=== PATIENT | female | born 1975 | race Caucasian/White ===

== ENCOUNTER → 2017-05-10 07:58 | Outpatient (CLI) | payer OTHER, SELFPAY ==
[2017-05-10 10:34] LABS: Free T3 2.7 pg/mL (2.18-3.98); T4 Free Direct 0.92 ng/dL (0.76-1.46); Thyroid Stim Hormone (TSH) 1.16 uIU/mL (0.358-3.74)
== END ==
PROVIDERS: Family Provider Family Medicine; PCP Family Medicine; Visit Provider Nurse Practitioner
DX: E07.9 Disorder of thyroid, unspecified (principal)
CPT/HCPCS: 36415; 84439; 84443; 84481

== ENCOUNTER 2017-11-06 12:58 | Emergency (ER) | payer OTHER, SELFPAY ==
[2017-11-06 12:59] VITALS: BP 128/78; PULSE 117; RESP 25; TEMP 36.8; O2SAT 99; BMI 23.8
[2017-11-06] MEDS: LORazepam 2 MG/ML Syringe 1 MG IM (14:06)
[2017-11-06 14:09] VITALS: PULSE 112; RESP 24
[2017-11-06] MEDS: Ipratropium/Albuterol Sulfate 3 ML AMPUL.NEB INHALATION (14:09)
--- NOTE | 2017-11-06 15:15 | ED.VISSUMM ---
- ER Visit Summary Date of Service: 11/06/17 Chief Complaint: [Shortness of breath and wheezing] History of Present Illness: The patient is a 41 F [presents the emergency department complaint of shortness of breath that started around 10:30 AM. Patient states that she began feeling very short of breath and lightheaded. Patient is using her inhaler not getting any relief so she comes in for evaluation. Patient states that she went to [place] to visit and came back at the end of September and since that time she has been having increased episodes of what she thinks is asthma. Patient has been formally seen and evaluated by pulmonology and diagnosed with asthma. Patient has an appointment with a new specialist next week. Patient does state that she began feeling very anxious when she was having a hard time breathing and she did develop some numbness and tingling in her hands and around her mouth. Patient denies recent illness.] Physical Examination: [HEENT-PERRLA, EOMI. Cranial nerves II through XII grossly intact. TMs clear. Mucous membranes moist. No adenopathy. Cardiovascular-regular rate and rhythm without murmur or ectopy Lungs-clear to auscultation, chest wall stable without crepitus or subcu emphysema Abdomen-normoactive bowel sounds, soft, nontender, no rebound or rigidity, no peritoneal signs. Extremities-intact ?4, normal range of motion, normal pulses, atraumatic Test results-chest x-ray obtained was normal.] Emergency Department Course and Treatment: [Patient was given a DuoNeb aerosol and 1 mg of Ativan. Patient did have significant symptomatic improvement.] Treatment Plan: [At this point I do not hear any wheezing on exam and my suspicion is that there is a large component of anxiety. Patient will be given prednisone for 5 days and will be given as needed Ativan. Patient advised to follow-up with primary care physician for possible long-term management of anxiety. Patient to keep her appointment with her asthma specialist.] Disposition: [Discharged home in stable condition] Impression: [Asthma exacerbation Anxiety reaction] This note was generated with [employer] dictation software. It may contain incorrect words, spelling, and punctuation that were not noted in review of the chart prior to signing ED Disposition - Plan for ED Patient: Chief Complaint: Asthma Referrals: Anushka Johns MD [Primary Care Provider] -
--- NOTE | 2017-11-06 15:20 | ED.DEP ---
ED Disposition - Plan for ED Patient: Chief Complaint: Asthma Instructions: ED Reactive Airway Disease, ED Stress React Prescriptions: Prednisone [Deltasone] 20 mg PO BID #10 tab Lorazepam [Ativan] 1 mg PO TID PRN #15 tab PRN Reason: Anxiety Referrals: Bassam Herron MD [STAFF PHYSICIAN] - 3-5 Days
[2017-11-06 15:37] VITALS: BP 103/78; PULSE 100; RESP 14; O2SAT 97
[2017-11-06] MEDS: predniSONE 20 MG Tablet 40 MG PO (15:38)
== END 2017-11-06 15:40 | disposition home or self-care (01) ==
PROVIDERS: Emergency Provider Emergency Medicine; Family Provider Family Medicine; PCP Family Medicine
DX: J45.901 Unspecified asthma with (acute) exacerbation (principal); F41.9 Anxiety disorder, unspecified
CPT/HCPCS: 71046; 94640; 96372; 99282

== ENCOUNTER 2017-11-09 10:25 | Emergency (ER) | payer OTHER, SELFPAY ==
[2017-11-09 10:25] VITALS: BP 136/89; PULSE 99; RESP 16; TEMP 36; O2SAT 98; BMI 23.8
--- NOTE | 2017-11-09 10:43 | ED.DCSUM_ITS ---
- ER Visit Summary Date of Service: 11/09/17 Chief Complaint: Shortness of breath History of Present Illness: The patient is a 41 F for intermittent shortness of breath for the past 2 months. She was seen in the ER on November 06 for asthma. She is currently on prednisone 40 mg a day and takes multiple inhalers. She denies improvement in her symptoms. She is scheduled to see a new head correction officer next week and call the office today. She was sent back to the ER for stronger medicine. Patient states that she was very anxious because her asthma attack was very severe a few days ago. She believes that the physician thought her symptoms were primarily secondary to anxiety. Physical Examination: Blood pressure is 136/89, temperature 96.8, heart rate 99 , respiratory rate 16, pulse ox 98% on room air. Patient sitting upright in bed no acute distress. She is speaking full sentences. Head neck examination is unremarkable. Heart is regular rate and rhythm. Lung sounds are clear with good air movement throughout. Abdomen is soft and nontender. Test Results: Chest x-ray from the is reviewed and normal. EKG is sinus 83 with no acute ischemia. CBC is normal. Chemistry studies significant for bicarb of 20. Troponin and d-dimer are both negative. Emergency Department Course and Treatment: Patient was given a DuoNeb treatment here along with 125 mg of IV Solu-Medrol. On repeat evaluation she is feeling improved. Sats and respiratory rate have remained normal throughout her ED stay. We will write her a prednisone taper which she will take in place of her last day or 2 of prednisone. She is to follow-up with her head correction officer next week as planned. Treatment Plan: [] Disposition: Discharge Impression: Dyspnea, improved This note was generated with [employer] dictation software. It may contain incorrect words, spelling, and punctuation that were not noted in review of the chart prior to signing ED Disposition - Plan for ED Patient: Chief Complaint: Shortness of Breath Referrals: Anushka Johns MD [Primary Care Provider] -
[2017-11-09 10:58] VITALS: PULSE 99; RESP 18
[2017-11-09] MEDS: Ipratropium/Albuterol Sulfate 3 ML AMPUL.NEB INHALATION (10:58)
[2017-11-09] MEDS: MethylPREDNISolone 125 MG/2 ML Vial IV (10:58)
[2017-11-09 11:06] VITALS: O2SAT 99
[2017-11-09 11:21] LABS: Absolute Lymphocyte Count 0.96 X10^3/ul (0.83-4.51); Absolute Neutrophil Count 7.6 X10^3/uL (2.0-7.7); Basophil# 0.01 X10^3/uL; Basophil% 0.1 % (0-1); Eosinophil# 0.01 X10^3/uL; Eosinophils% 0.1 % (0-5); Hematocrit 43.2 % (37-47); Hemoglobin 14.4 g/dl (12.0-15.0); Lymphocyte # 0.96 X10^3/ul (4.0); Lymphocyte % 10.9 % (19-41); Mean Corp Hgb Conc 33.3 g/gl (32-36); Monocyte# 0.16 X10^3/uL; Monocyte% 1.8 % (0-10); Neutrophil # 7.64 X10^3/uL (2.7-7.7); Neutrophil % 87.1 % (47-70); Platelet Count 286 K/mm3 (150-450); RBC Distribution Width CV 12.8 % (11.6-14.6); RBC Distribution Width SD 41.9 fl (35.1-43.9); White Blood Count 8.8 K/mm3 (4.4-11.0)
[2017-11-09 11:22] LABS: POSITIVE COUNT NO; POSITIVE DIFFERENTIAL NO; POSITIVE MORPHOLOGY NO
[2017-11-09 11:27] LABS: Anion Gap 15 (5-15); BUN 15 mg/dL (7-18); BUN/Creat Ratio 14.3 RATIO (10-20); Calcium,Total 10.3 mg/dL (8.5-10.1); Chloride 108 mmol/L (98-107); Creatinine, Serum 1.05 mg/dL (0.55-1.02); EST Glomerular Filtration Rate 61 mL/min (>60); Est Glom Filt Rate - Afr Amer 74 mL/min (>60); Estimated Creatinine Clearance 55.77 ml/min; Glucose 110 mg/dL (74-106); Potassium 3.5 mmol/L (3.5-5.1); Sodium Level 143 mmol/L (136-145)
[2017-11-09 11:34] LABS: D-Dimer Quantitative (DVT/PE) < 0.27 FEU/ug/m (0.27-0.49)
--- NOTE | 2017-11-09 12:58 | ED.DEP ---
ED Disposition - Plan for ED Patient: Disposition: Home or Assisted Living Chief Complaint: Shortness of Breath Instructions: ED Reactive Airway Disease Prescriptions: Prednisone 10 mg PO DAILY #63 tablet Referrals: Anushka Johns MD [Primary Care Provider] - Man Pereira MD [NON-STAFF] - Keep Ellie appointment
[2017-11-09 13:20] VITALS: BP 112/81; PULSE 86; RESP 15; O2SAT 97
== END 2017-11-09 13:21 | disposition home or self-care (01) ==
PROVIDERS: Emergency Provider Emergency Medicine; Family Provider Family Medicine; PCP Family Medicine
DX: R06.09 Other forms of dyspnea (principal); J45.909 Unspecified asthma, uncomplicated
CPT/HCPCS: 80048; 84484; 85025; 85379; 93005; 94640; 96374; 99283; A4216

== ENCOUNTER 2017-12-06 08:01 | Day surgery (SDC) | payer OTHER, SELFPAY ==
--- NOTE | 2017-12-05 18:30 | PCM.HP.BLA ---
History and Physical Date of Admission: 12/06/17 HISTORY OF PRESENT ILLNESS 42 year old woman presents for evaluation of a recurrent soft tissue mass left occipital scalp/posterior neck that was initially excised in 12/21. Pathology showed a reactive lymph node and no cancer was seen. She states it started to recur about a year ago with some discomfort. She does have a history of headaches. She states she has been to the ED for evaluation because of concern for infection. Since her surgery in 2011, she has been diagnosed with celiac's disease and has a decreased immune system. She presents today for further evaluation and treatment. Today she denies any fever. She denies any drainage. There is only some discomfort when it is bumped. She thinks the mass has gotten softer. PAST MEDICAL HISTORY Asthma Frequent headaches Gastrointestinal problem Osteopenia Seasonal allergies Status post normal childbirth Thyroid disease Vitamin deficiency PAST SURGICAL HISTORY Glomus tumor appendectomy nasal septoplasty Lipoma ALLERGIES None. MEDICATIONS None. FAMILY HISTORY Mother Breast cancer Father Prostate cancer Sister Melanoma Thyroid disorder SOCIAL HISTORY Smoking Status: Never smoker alcohol intake: current substance use type: does not use REVIEW OF SYSTEMS General - Denies fever, fatigue, and weight loss. Eyes - Denies cataracts and glaucoma. ENT - Denies nasal congestion and sore throat. Endocrine - Denies excessive thirst and urination. Has thyroid disease. Skin - Denies skin cancer. Has recurrent soft tissue mass left occipital scalp/posterior neck. Musculoskeletal - Denies joint pain, joint stiffness, weakness of muscles and joints, back pain, and arthritis. Neuro - Has headaches. Cardiovascular - Denies chest pain, fatigue, and shortness of breath with exertion. Psych - Denies anxiety and depression. Respiratory - Denies chronic cough. Has shortness of breath. Has asthma. Gastrointestinal - Denies nausea, vomiting, diarrhea, and constipation. Has celiac's disease. Hematologic - Denies abnormal bruising and bleeding. Genitourinary - Denies hematuria and urinary frequency. PHYSICAL EXAMINATION General - Alert and Oriented HEENT - PERRL. EOMI. Throat is clear. Neck - Supple and nontender. No cervical adenopathy. On the left occipital scalp/posterior neck is a soft tissue mass. It is mobile. It measures 2.2 cm in the area of scar from previous excision of a reactive lymph node in 2011. No evidence of infection. No ulceration. Some discomfort when palpated. It was more nodular in June. The scar is flatter and softer. Lungs - Clear to auscultation. Heart - Regular rate and rhythm. Abdomen - Soft and nondistended. Extremities - FROM. No axillary adenopathy. Radial pulses are palpable. Neuro - CN II-XII grossly intact. Psych - Normal mood and affect. ASSESSMENT 1. 2.2 cm recurrent soft tissue mass left occipital scalp/posterior neck. 2. Family history of melanoma. PLAN Patient has persistent discomfort and intermittent headaches. There may be scarring around an adjacent nerve leading to some discomfort. The mass has slightly increased since her last visit in June. Clinically does not look suspicious for carcinoma at this time. However with her painful symptomatology and increase in size, it is recommended to the patient to proceed with excision. With her history of celiac's disease which decreases the immune system, it would be prudent to excise this lesion at some point. The issue is that in order to minimize further recurrence, a little wider excision may be necessary especially the underlying scar tissue. Since the scar has become flatter and the mass is softer, I doubt will need a skin graft. Should be able to close the wound with a local transposition skin flap. When excised, the lesion will be sent to Pathology for analysis to rule out carcinoma. Also some tissue will be sent to Microbiology for culture. A positive culture would necessitate antibiotic therapy. Back in 2011, it was a reactive lymph node. Today it may be a cyst versus another lymph node. But with a decreased immune system, carcinoma cannot be ruled out. Patient feels better that a skin graft would be unlikely but understands the chance is not zero. Surgery would be on an outpatient basis under general anesthesia. Patient was informed of the risks and complications of the procedure including alternatives to surgery. These were discussed with the patient personally. Patient voices understanding and wishes to proceed. Some of the risks and complications were included in a form from the [employer] [employer]. She wants to wait until the Fall to have the surgery.
[2017-12-06 08:20] VITALS: BP 129/93; PULSE 89; RESP 16; TEMP 36.6; O2SAT 99; BMI 24.7
[2017-12-06 08:26] LABS: Internal QC Validated? YES +Cl - CLEAR BKGD; Pregnancy, Urine Negative Negative
--- NOTE | 2017-12-06 09:30 | SOF_PTH ---
PATIENT: JASPREET BLAND [place] [facility] [id number] AGE/SX: 42/F ROOM: RE12/06/[address]: Dr. Ismael Samson MD : 1975 BED: DIS: 12/06/2017 SPEC #: [id number] RECD: 12/06/17 14:50 STATUS: ROSANGELA TEX #: [id number] BENNY: 12/06/17 09:[address]: Ismael Samson DEPT: SURGICAL PATHOLOGY RECD BY: Kahlil Tapia ENTERED: 12/07/17 04:56 SP TYPE: SOFT TISS OTHR DR: Dr. Anushka Johns MD Tissues: Soft tissues, NOS Procedures: Surgery Specimen Level III HEADER OPERATION: Excision recurrent painful soft tissue mass occipital scalp PRE-OP DIAGNOSIS: 2.2 cm recurrent soft tissue mass left posterior neck TISSUE SUBMITTED: Soft tissue mass left posterior neck MICROSCOPIC DIAGNOSIS Soft tissue mass left posterior neck, biopsy: Mature adipose tissue, consistent with lipoma. A small lymph node tissue with reactive changes, favor benign. See comment. J LUIS:wes 12/07/17 COMMENT Skeletal muscle tissue is also noted in the submitted specimen. MICROSCOPIC DESCRIPTION Slides are reviewed. GROSS DESCRIPTION Received in fixative is one container labeled with the patient's name and designated soft tissue mass posterior neck. The specimen consists of a piece of skin with underlying adipose tissue measuring 2 x 0.5 cm and up to 2.5 cm in thickness. Also received is a piece of lindsey-white skin measuring 1 x 0.2 x 0.3 cm. Also present in the container is a piece of yellow adipose tissue measuring 3 x 2 x 0.5 cm. Skeletal muscle tissue is also noted at one edge of the specimen. Skin with underlying tissue also shows a suture which no orientation is given. The entire specimen is submitted in three cassettes. / J LUIS:wes 12/06/17 TC:1 CPT: 52698
[2017-12-06] MEDS: Mupirocin Ointment 22gm Tube 1 APPLIC (11:04)
--- NOTE | 2017-12-06 11:38 | PCM.IMDPSTOP ---
Immediate Post-Op Note Date of Procedure: 12/06/17 Primary Surgeon/Physician: Ismael Samson front office supervisor: None Pre-Operative Diagnosis: 1. 2.2 cm recurrent soft tissue mass left posterior neck. 2. Family history of melanoma. Post-Operative Diagnosis: Same. Surgery/Procedure Performed:: Excision 2.2 cm recurrent soft tissue mass left occipital scalp/posterior neck with rhomboid transposition skin flap reconstruction (4.5 cm2). Description of Surgical Findings:: 42 year old woman presents for evaluation of a recurrent soft tissue mass left posterior neck that was initially excised in 12/21. Pathology showed a reactive lymph node and no cancer was seen. She states it started to recur about a year ago with some discomfort. She does have a history of headaches. She states she has been to the ED for evaluation because of concern for infection. Since her surgery in 2011, she has been diagnosed with celiac's disease and has a decreased immune system. She presents today for further evaluation and treatment. Today she denies any fever. She denies any drainage. There is only some discomfort when it is bumped. She thinks the mass has gotten softer. Today the patient underwent excision 2.2 cm recurrent soft tissue mass left occipital scalp/posterior neck with rhomboid transposition skin flap reconstruction (4.5 cm2). I used April absorbable hemostat. Reference Number - [id number]. Lot Number - [id number]. Expiration - September 06, 2022. Estimated Blood Loss: 10 ml. Specimen's removed: Recurrent painful soft tissue mass left occipital scalp/posterior neck to Pathology and Microbiology. Drains: None. Type of Anesthesia:: General - Admit VTE Documentation VTE Present on Admission: No VTE Mechan Device Prophylaxis: SCD's VTE Pharm Prophylaxis ordered?: No
--- NOTE | 2017-12-06 11:51 | PCM.DC ---
You will use the following diet at home:: No restrictions Discharge Activity: May not drive while taking narcotic pain medications., May Shower - in 2 days., - - keep head elevated. no heavy lifting. May shower in (days): 2 May resume sexual activity in: No Restrictions Weight Bearing Status: Weight bearing as tolerated Lifting Restrictions: 20 lbs. Keep extremity elevated above heart level: - - elevate head. Call your doctor if your incision/area has: Continuous Slow Oozing, Sudden Increased Bleeding, Increased Pain/ Swelling, Increased Redness, Foul Smelling Discharge, Swelling at the incision site Call your doctor if you observe: Fever of 101 or Higher, Coldness, Increased Pain, Shortness of breath, Chest pain, Calf discomfort, Uncontrolled pain Suture Line Care: - - apply antibiotic ointment to suture line daily. Cleanse incision/area with: - - may get incision wet in the shower in two days. Allergies/Adverse Reactions: Allergies No Known Allergies Allergy (Verified 11/22/17 10:47) Medications to take at Discharge Albuterol IH (ProAir) [Proair Hfa] 2 puff INHALATION Q4H PRN PRN 11/22/17 Calcium Carbonate [Calcium] 600 mg PO DAILY 11/22/17 Cholecalciferol (Vitamin D3) [Vitamin D3] 1,000 unit PO DAILY 11/22/17 Ipratropium [Atrovent Inhaler] 1 puff INHALATION PRN PRN 11/22/17 Tramadol HCl/Acetaminophen [Ultracet Tablet] 1 tab PO Q4H PRN PRN 11/22/17 Clindamycin HCl [Cleocin] 300 mg PO TID #15 cap 12/06/17 Diazepam [Valium] 5 mg PO BID PRN PRN #10 tab 12/06/17 Oxycodone HCl/Acetaminophen [Percocet 5/325] 1 - 2 tab PO 4X/DAY PRN PRN 4 Days #30 tab 12/06/17 The following prescriptions were given: Diazepam [Valium] 5 mg PO BID PRN PRN #10 tab PRN Reason: Spasms Oxycodone HCl/Acetaminophen [Percocet 5/325] 1 - 2 tab PO 4X/DAY PRN PRN 4 Days #30 tab PRN Reason: Pain Clindamycin HCl [Cleocin] 300 mg PO TID #15 cap Primary Care Physician: Anushka Johns MD [Primary Care Provider] - Test Results: Test results from this visit will be discussed in further detail at your follow-up appointment, if applicable. Please Follow Up With: Ismael Samson MD When: one week. call [phone] for appt. Proposed Discharge Date: 12/06/17
[2017-12-06 11:52] VITALS: BP 116/73; BP 129/93; PULSE 99; RESP 16; TEMP 36.5; O2SAT 94
--- NOTE | 2017-12-06 11:54 | DCINST_ITS ---
You will use the following diet at home:: No restrictions Discharge Activity: May not drive while taking narcotic pain medications., May Shower - in 2 days., - - keep head elevated. no heavy lifting. May shower in (days): 2 May resume sexual activity in: No Restrictions Weight Bearing Status: Weight bearing as tolerated Lifting Restrictions: 20 lbs. Keep extremity elevated above heart level: - - elevate head. Call your doctor if your incision/area has: Continuous Slow Oozing, Sudden Increased Bleeding, Increased Pain/ Swelling, Increased Redness, Foul Smelling Discharge, Swelling at the incision site Call your doctor if you observe: Fever of 101 or Higher, Coldness, Increased Pain, Shortness of breath, Chest pain, Calf discomfort, Uncontrolled pain Suture Line Care: - - apply antibiotic ointment to suture line daily. Cleanse incision/area with: - - may get incision wet in the shower in two days. Allergies/Adverse Reactions: Allergies No Known Allergies Allergy (Verified 11/22/17 10:47) Medications to take at Discharge Albuterol IH (ProAir) [Proair Hfa] 2 puff INHALATION Q4H PRN PRN 11/22/17 Calcium Carbonate [Calcium] 600 mg PO DAILY 11/22/17 Cholecalciferol (Vitamin D3) [Vitamin D3] 1,000 unit PO DAILY 11/22/17 Ipratropium [Atrovent Inhaler] 1 puff INHALATION PRN PRN 11/22/17 Tramadol HCl/Acetaminophen [Ultracet Tablet] 1 tab PO Q4H PRN PRN 11/22/17 Clindamycin HCl [Cleocin] 300 mg PO TID #15 cap 12/06/17 Diazepam [Valium] 5 mg PO BID PRN PRN #10 tab 12/06/17 Oxycodone HCl/Acetaminophen [Percocet 5/325] 1 - 2 tab PO 4X/DAY PRN PRN 4 Days #30 tab 12/06/17 The following prescriptions were given: Diazepam [Valium] 5 mg PO BID PRN PRN #10 tab PRN Reason: Spasms Oxycodone HCl/Acetaminophen [Percocet 5/325] 1 - 2 tab PO 4X/DAY PRN PRN 4 Days #30 tab PRN Reason: Pain Clindamycin HCl [Cleocin] 300 mg PO TID #15 cap Primary Care Physician: Anushka Johns MD [Primary Care Provider] - Test Results: Test results from this visit will be discussed in further detail at your follow- up appointment, if applicable. Please Follow Up With: Ismael Samson MD When: one week. call [phone] for appt. Proposed Discharge Date: 12/06/17
[2017-12-06 12:03] VITALS: BP 112/69; BP 129/93; PULSE 94; RESP 12; O2SAT 99
[2017-12-06 12:15] VITALS: BP 124/83; BP 129/93; PULSE 96; RESP 12; O2SAT 99
[2017-12-06 12:28] VITALS: BP 112/76; BP 129/93; PULSE 101; RESP 14; TEMP 36.3; O2SAT 97
[2017-12-06 12:59] VITALS: BP 109/62; BP 129/93; PULSE 78; RESP 16; TEMP 36.3; O2SAT 98
--- NOTE | 2017-12-06 16:52 | PCM.OPRPT ---
Report of Operation Date of Procedure: 12/06/17 Pre-Operative Diagnosis: 1. 2.2 cm recurrent soft tissue mass left posterior neck. 2. Family history of melanoma. Post-Operative Diagnosis: Same. Surgery/Procedure Performed:: Excision 2.2 cm recurrent soft tissue mass left occipital scalp/posterior neck with rhomboid transposition skin flap reconstruction (4.5 cm2). Description of Surgical Findings:: 42 year old woman presents for evaluation of a recurrent soft tissue mass left posterior neck that was initially excised in 12/21. Pathology showed a reactive lymph node and no cancer was seen. She states it started to recur about a year ago with some discomfort. She does have a history of headaches. She states she has been to the ED for evaluation because of concern for infection. Since her surgery in 2011, she has been diagnosed with celiac's disease and has a decreased immune system. She presents today for further evaluation and treatment. Today she denies any fever. She denies any drainage. There is only some discomfort when it is bumped. She thinks the mass has gotten softer. Patient was informed of the risks and complications of the procedure including alternatives to surgery. These were discussed with the patient personally. Patient voices understanding and wishes to proceed. Some of the risks and complications were included in a form from the [employer] [employer]. I used April absorbable hemostat. Reference Number - [id number]. Lot Number - [id number]. Expiration - September 06, 2022. light oil operator: None Type of Anesthesia:: General Specimen's removed: Recurrent painful soft tissue mass left occipital scalp/posterior neck to Pathology and Microbiology. Drains: None. Estimated Blood Loss (mL): 10 ml. Description of Procedure: Patient was taken to OR in supine position and was placed under general anesthesia. She was placed in the prone position. The occipital scalp and left posterior neck area were prepped and draped in the usual fashion. SCD's were placed for DVT prophylaxis. Perioperative antibiotics were given intravenously. Using xylocaine with epinephrine, the area of the occipital scalp and left posterior neck was infiltrated. After waiting 5 minutes for the anesthetic to take effect, I excised the previous longitudinal scar down into the subcutaneous tissue. Extensive scar tissue was present which was excised and was adherent down to the underlying muscle. The soft tissue mass that was excised was clinically consistent with a lipoma. After excision, the mass and surrounding scar tissue was sent to Pathology for analysis to rule out carcinoma. Some of the tissue was also sent to Microbiology for culture. A positive culture will necessitate antibiotic therapy. Attempted closure of the wound was tight secondary to the amount of scar tissue that was excised. So it was decided to proceed with a local skin flap for closure to minimize tension of the incision. A rhomboid flap was designed adjacent to the wound. The markings were infiltrated with xylocaine with epinehrine. Incisions were made and the rhomboid flap was elevated on a subcutaneous pedicle down to the muscular fascia. The rhomboid flap was easily transposed into the defect with minimal tension and minimal distortion. Hemostasis was obtained with electrocautery. The wound was irrigated with saline. I sprayed the wound with April absorbable hemostat to minimize seroma formation. The size of the defect and the size of the flap needed to close the defect was 4.5 cm2. After transposing the flap into the defect, the wounds were closed in layered fashion with 5-0 Monocryl interrupted sutures for the deep dermis and subcutaneous tissue. The skin was approximated with 5-0 Monocryl simple interrupted sutures. Antibiotic ointment was applied to the suture line. Patient tolerated the procedure well and was sent to PACU in satisfactory condition. Patient will be sent home on antibiotics and pain medication and Valium for muscle spasm from irritation of the muscle during the dissection. Patient will keep her head elevated during the initial postop period. Patient will followup in a week for a wound check and for discussion of the pathology report and the microbiology culture report. A positive culture will necessitate antibiotic therapy. Grafts/Implants Used: None. - Complications None. - Admit VTE Documentation VTE Present on Admission: No VTE Mechan Device Prophylaxis: SCD's VTE Pharm Prophylaxis ordered?: No Code Visit Surgery Charges CPT - 59923 ICD-10 - R22.1, Z80.8
== END 2017-12-06 13:34 | disposition home or self-care (01) ==
LOC: SDC 08:02 → AC 08:03
PROVIDERS: Family Provider Family Medicine; PCP Family Medicine; Referring Provider Surgery; Visit Provider Surgery
PROC: (CPT 14040; principal; 2017-12-06 09:15)
DX: R22.1 Localized swelling, mass and lump, neck (principal); Z80.8 Family history of malignant neoplasm of other organs or systems; J45.909 Unspecified asthma, uncomplicated; M85.80 Other specified disorders of bone density and structure, unspecified site
CPT/HCPCS: 00300; 14040; 81025; 87070; 87075; 87102; 87205; 87206; 88304; J7120; J2405

== ENCOUNTER → 2018-04-11 09:51 | Outpatient (CLI) | payer OTHER, SELFPAY ==
[2018-04-02 08:16] VITALS: BMI 25.7
--- NOTE | 2018-04-11 14:02 | BRONCHALL ---
Bronchoprovocation Challenge - Bronchoprovocation Challenge Bronchoprovocation Challenge: INTRODUCTION: The patient is a 42-year-old female who presents for a methacholine challenge secondary to a diagnosis of shortness of breath. The respiratory therapist reported good patient effort and reproducible results. The patient did not have any contraindications to testing. INTERPRETATION: Initial spirometry did not show any large airways obstructive ventilatory defect. The patient was then given progressively increasing doses of methacholine in a standardized fashion. The patient showed no significant response in FEV1 throughout the test. IMPRESSION: Negative methacholine challenge.
== END ==
PROVIDERS: Family Provider Family Medicine; PCP Family Medicine; Referring Provider Internal Medicine Critical Care Medicine; Visit Provider Internal Medicine Critical Care Medicine
DX: R06.02 Shortness of breath (principal); J30.2 Other seasonal allergic rhinitis
CPT/HCPCS: 94070; 95070; J3490; J7674

== ENCOUNTER 2018-08-22 11:30 | Outpatient (RCR) | payer OTHER, SELFPAY ==
[2018-08-07 10:41] VITALS: BMI 24.5
--- NOTE | 2018-08-15 19:36 | SOAP_ITS ---
REASON FOR REFERRAL: The Patient is a 42 year old female referred for a clinical speech-language evaluation at [facility] on 08/15/2018 due to concerns for persistent shortness of breath possibly secondary to paradoxical vocal fold dysfunction following extensive workup by the Patients global director air and climate change (Dr. Angel), with planned upcoming workup via medart operator (Dr. Carlos). The Patient reports symptoms of acute shortness of breath unrelated to physical exertion stating she is incapable of drawing a full breath, reporting difficulties primarily with inhalation vs. exhalation. She denies the presence of stridor or any further alterations in her breathing pattern. She states this has been occurring over the past several years between the months of July to October, reporting that she does quite well outside of these specific months; she reports that July was a particularly bad this year. She reports that her symptoms tend to last days at a time vs. minutes / hours, with one instance lasting nearly 3 days (July 27 to July 30) following extensive yard work (mulch, brushing excessive pollen off of belongings). She tends to wake without symptoms, with her symptoms gradually building in regards to intensity over the first 1-2 hours. She reports occasional dizziness with symptomology. She reports persistent rhinorrhea without relief. She denies a presence of chest tightness, and denies associated coughing. She does report that tight clothing with at times make her symptoms worse. She did report an initial relief with inhaler use, though this was temporary. She does report a gradual increase in regards to anxiety, stating this is associated in part to the persistent issues she has experienced with celiac disease; she states that she is an ?over thinker?, she reports a possible panic attack last October (tough her symptoms were rather mild last year), though does not feel as though this has progressed in line with her breathing symptomology. Prior allergy workup suggested seasonal allergies, though she reports no further intervention was initiated MEDICAL HISTORY: Seasonal allergies, asthma, frequent headaches, thyroid disease, Irritable bowel syndrome, celiac disease, osteopenia, vitamin deficiency, status post appendectomy, status post glomus tumor, status post nasal septoplasty. ADDITIONAL OBJECTIVE ASSESSMENT RESULTS: 04/11/2018 bronchoprovocation challenge revealed negative methacholine challenge results. ORAL MOTOR / MODIFIED CRANIAL NERVE ASSESSMENT: CNV, VII, IX, X, and XII appears grossly intact. Natural upper / lower dentition in excellent repair. No xerostomia. No evidence of sialorrhea. No reported signs or symptoms of trismus. Appropriate vocal quality without apparent detrimental non-phonatory behaviors (claviclular breathing, stridor, chronic throat clearing / coughing). FUNCTIONAL STATUS ASSESSMENT RESULTS: Generalized Anxiety Disorder 7-item (REGINA-7) scale: 3 (no anxiety disorder) Patient Health Questionnaire (PHQ-9): 0 (minimal to no risk) Functional Ambulation Category (FAC): 5 (ambulator- independent) CLINICAL ASSESSMENT OF VOCAL CORD FUNCTIONING (QUANTITATIVE): Reflux Symptom Index (RSI): 8 (>13 may indicate significant reflux) Voice Handicap Index ? 10 (VHI-10): 2 (slight alteration) Vocal Cord Dysfunction Questionnaire (VCD-Q): 36 /60 S/Z Ratio: 1.19 (1.40 suggests vibratory dysfunction of the vocal folds) Maximum Phonation Time (MPT): 28.8 seconds CLINICAL ASSESSMENT OF VOCAL CORD FUNCTION (QUALITATIVE): Type of Stridor/Breathing Difficulty Inspiratory: yes Expiratory: no Biphasic (inspiratory & expiratory): no Pattern of Stridor/Breathing Difficulty Continuous (all of the time) day & night: no Continuous daytime only not at night: no Intermittent attacks lasting [id number]: no Intermittent attacks lasting [id number]: yes Intermittent attacks lasting several days: yes Triggers (Timing and/or Associated Activities) After meals (eating/drinking): no Awakens from sleep: no Associated with exercise: no Associated with stress: no Associated with certain odors: no Associated Symptoms Hoarseness: no Chest tightness: no Cough: no Dysphagia: no Globus sensation: no Heartburn: no Regurgitation: no Throat tightness: no Specific Relevant Past Medical History Allergies and/or asthma: yes Brain tumor: no Haldol or other phenothiazine: no Head injury: no Laryngeal or non-laryngeal dystonia: no LPR and/or GERD: no Psychiatric disorder: no Stroke: no Vocal fold paralysis: no General Examination / Observations Breathy and/or hoarse vocal quality: no Inspiratory/biphasic stridor during respiration/speech: no Reduced breath support or control: no Musculoskeletal tension of the head and neck: no Throat tightness/choking/breathing problem during Alternating / i / - sniff: no Rapid in-and-out breathing: no Cough/throat clear/chuckle, then deep breath: no Rapid and loud counting: no Smelling a strong perfume or chemical: no Running in place: no RESULTS OF THE EVALUATION: The Patient presents with clinical concerns for 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 RECOMMENDATIONS FOR INTERVENTION: Recommend continued skilled speech-language intervention 1x per week for upwards of 10 weeks with a licensed speech-language pathologist targeting training and implementation of recommended compensatory respiratory strategies and laryngeal control exercises to reduce / eliminate the effects of paradoxical vocal fold dysfunction. FUNCTIONAL OUTCOMES: OUTCOME 1: the Patient with independently demonstrate and utilize recommended compensatory breathing techniques during both structured therapeutic activities and during acute breathing episodes to facilitate improved airway functioning and decreased anxiety at the independent level, across 2 out of 3 sessions. OUTCOME 2: goal adjustment as needed Teofilo Dawson M.A., CCC-FLOOR WORKER WELL SERVICE, CBIS MBSImP Certified, LSVT Certified [facility] Speech-Language Pathology Department [email or web address]
--- NOTE | 2019-01-08 19:46 | HP.SP.DC ---
ST Discharge Summary - Discharged: Discharge: The Patient is a 42 year old female who attended 2 skilled speech-language intervention sessions spanning from 08/15/2018 to 08/22/2018 due to concerns for persistent shortness of breath possibly secondary to paradoxical vocal fold dysfunction following extensive workup by the Patients tea plantation worker (Dr. Angel), with planned upcoming workup via stranding machine operator helper (Dr. Carlos) at the time of assessment. Following initial sessions, the Patient reported preference to hold further intervention pending full workup via stranding machine operator helper, with plans to discharge following 8 weeks if no further sessions have been scheduled. We will discharge from the skilled speech-language pathology caseload at this time, as no further sessions have been scheduled, though would gladly re-initiate intervention as needed moving forward.
== END 2018-08-22 19:00 | disposition home or self-care (01) ==
LOC: SP 11:30
PROVIDERS: Family Provider Family Medicine; PCP Family Medicine; Referring Provider Internal Medicine Critical Care Medicine; Visit Provider Internal Medicine Critical Care Medicine
DX: J38.3 Other diseases of vocal cords (principal)
CPT/HCPCS: 92507; 92524

== ENCOUNTER → 2018-11-12 12:17 | Outpatient (CLI) | payer OTHER, SELFPAY ==
[2018-08-07 10:41] VITALS: BMI 24.5
[2018-11-12 14:10] LABS: Thyroid Stim Hormone (TSH) 1.23 uIU/mL (0.358-3.74)
== END ==
PROVIDERS: Family Provider Family Medicine; PCP Family Medicine; Referring Provider Family Medicine; Visit Provider Family Medicine
DX: E03.9 Hypothyroidism, unspecified (principal)
CPT/HCPCS: 36415; 84443

== ENCOUNTER → 2019-04-23 | Outpatient (CLI) | payer OTHER, SELFPAY ==
[2018-08-07 10:41] VITALS: BMI 24.5
== END | disposition home or self-care (01) ==
LOC: LABSPEC 14:11
PROVIDERS: PCP Family Medicine; Referring Provider Family Medicine; Visit Provider Family Medicine
DX: J02.9 Acute pharyngitis, unspecified (principal)
CPT/HCPCS: 87070

== ENCOUNTER → 2020-03-23 15:02 | Outpatient (CLI) | payer OTHER, SELFPAY ==
[2018-08-07 10:41] VITALS: BMI 24.5
[2020-03-23 18:40] LABS: AST(SGOT) 27 U/L (15-37); Alanine Aminotransfer ALT/SGPT 77 U/L (13-56); Cholesterol 127 mg/dL (200); High Density Lipoprotein 49 mg/dL; Triglycerides 197 mg/dL; Very Low Density Lipoprotein 39 mg/dL (5-40)
== END ==
PROVIDERS: PCP Family Medicine; Referring Provider Family Medicine; Visit Provider Family Medicine
DX: E78.5 Hyperlipidemia, unspecified (principal)
CPT/HCPCS: 36415; 80061; 84450; 84460

== ENCOUNTER 2021-03-14 08:03 | Outpatient (CLI) | payer OTHER, SELFPAY ==
[2021-03-14 11:13] LABS: AST(SGOT) 21 U/L (15-37); Alanine Aminotransfer ALT/SGPT 28 U/L (13-56); Cholesterol 171 mg/dL (200); High Density Lipoprotein 47 mg/dL; T4 Total, Thyroxin 10.1 ug/dL (4.8-13.9); Thyroid Stim Hormone (TSH) 1.88 uIU/mL (0.358-3.74); Triglycerides 263 mg/dL; Very Low Density Lipoprotein 53 mg/dL (5-40)
== END 2021-03-14 23:59 | disposition home or self-care (01) ==
LOC: MTLAB 08:05
PROVIDERS: PCP Family Medicine; Referring Provider Family Medicine; Visit Provider Family Medicine
DX: E78.5 Hyperlipidemia, unspecified (principal); E03.9 Hypothyroidism, unspecified
CPT/HCPCS: 36415; 80061; 84436; 84443; 84450; 84460

== ENCOUNTER → 2021-12-14 | Outpatient (CLI) | payer OTHER, SELFPAY ==
[2021-12-14 16:56] LABS: AST(SGOT) 18 U/L (15-37); Alanine Aminotransfer ALT/SGPT 21 U/L (13-56); Cholesterol 171 mg/dL (200); High Density Lipoprotein 43 mg/dL; Triglycerides 406 mg/dL
== END | disposition home or self-care (01) ==
LOC: MFPLAB 13:58
PROVIDERS: PCP Family Medicine; Referring Provider Family Medicine; Visit Provider Family Medicine
DX: E78.5 Hyperlipidemia, unspecified (principal)
CPT/HCPCS: 36415; 80061; 84450; 84460

== ENCOUNTER → 2023-01-05 | Outpatient (CLI) | payer OTHER, SELFPAY ==
--- NOTE | 2023-01-05 16:00 | RAD_ITS ---
EXAM: XR CERVICAL SPINE, 4 OR 5 VIEWS CLINICAL INDICATION: neck and arm pain TECHNIQUE: Frontal, lateral and bilateral oblique views of the cervical spine. COMPARISON: No relevant prior studies available. FINDINGS: VERTEBRAE: Unremarkable. Preserved vertebral body height. No acute fracture. No spondylolisthesis. Preservation of the normal cervical lordosis. No significant facet arthropathy. DISC SPACES: Unremarkable. Disc spaces are maintained. SOFT TISSUES: Unremarkable. No prevertebral soft tissue widening. LUNG APICES: Clear. RAD/Cerv Spine 4 or 5 Views IMPRESSION: No evidence of acute fracture or spondylolisthesis. Electronically Signed: Ever Tilley MD at 23:52 EDT ,
== END | disposition home or self-care (01) ==
LOC: MTRAD 16:00
PROVIDERS: PCP Family Medicine; Referring Provider Family Medicine; Visit Provider Family Medicine
DX: S46.819A Strain of other muscles, fascia and tendons at shoulder and upper arm level, unspecified arm, initial encounter (principal)
CPT/HCPCS: 72050

== ENCOUNTER 2023-02-21 08:00 | Outpatient (RCR) | payer OTHER, SELFPAY ==
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
--- NOTE | 2023-02-21 10:53 | HP.PTREVAL_ITS ---
Re-Evaluation Intro: Dr. Anushka Johns MD, It has been my pleasure to treat JESUSITA BLAND over the last 18 visits for TRAPEZIUS STRAIN. Please see the progress note below for an update on the physical therapy plan of care! Subjective Subjective: PATIENT REPORTS SHE IS DOING A LOT BETTER OVER-ALL. SHE REPORTS HER HEADACHES WERE DAILY BEFORE SHE STARTED AND HER NECK PAIN WAS INTENSE. SHE STATES SHE REALLY APPRECIATES ALL THE TIPS FOR HOME AND THE EX'S. Objective Objective/Function: PATIENT WAS SEEN TODAY FOR RE-ASSESSMENT OF PROGRESS TOWARD THE SET PT GOALS AND THE NEED FOR FURTHER PHYSICAL THERAPY VS READINESS FOR DISCHARGE. PATIENT HAS MADE GOOD PROGRESS WITH PT BUT WOULD BENEFIT FROM PT IN THE FUTURE FOR FURTHER POSTURE CORRECTION AND STRENGTHENING. SHE IS REPORTING LESS PAIN AND DEMO'S SOME IMPROVED ROM ALONG WITH NOW HAVING A HOME EX PROGRAM. UPON EXAM TODAY: Motor deficit: B SHLD 4/5, ELBOWS 5/5. R LIGHTING ENGINEER 61 LBS, L LIGHTING ENGINEER 50 LBS (PATIENT IS R HAND DOMINANT). Dural Signs: NEGATIVE CARRILLO UE'S. Cervical Mvmt Loss: Flex: NIL Pro: NIL Ext: MOD Ret: MOD RSB: MOD LSB: MOD R Rot: MIN L Rot: MIN PATIENT DENIES INCREASED NECK PAIN DURING AND AFTER ROM TESTING TODAY. Postural strength: FAIR Palpation: NO ACUTE CERVICAL, OCCIPUT, OR UPPER THORACIC TENDERNESS BUT INCREASED MUSCLE TONE THROUGHOUT. Plan Plan Plan: D/C DUE TO HAVING FOOT SURGERY TOMORROW. Balance/Gait/Functional tests Balance/Special Test Scores Oswestry Neck Score: 9 Goals Goals Goal 1:: PATIENT WILL REPORT DECREASED HEAD AND NECK PAIN BY 25% TO EASE ADL'S Goal Time Frame: 4-6 Weeks Goal Progress: Goal Met Goal 2:: IMPROVE PERSONAL CARE, SLEEP, WORK, DRIVING AND RECREATIONAL FUNCTION SHOWN BY 5 POINT INCREASE ON NECK OSESTRY Goal Time Frame: 4-6 Weeks Goal Progress: Goal Met Goal 3:: INSTRUCT IN PROPHYLAXIS Goal Time Frame: 4-6 Weeks Goal Progress: Goal Met Anticipated Interventions Anticipated Interventions Patient/Client Instruction: Educate patient on: Condition, Plan of Care and Risk Factors For the Purpose of:: To improve self management Therapeutic Exercise to Include: Strength training, Body mechanics, Postural training, Flexibilty training, Neuromotor development and Scapular Strength/Stabilization Manual Therapy Techniques to Include: Mobilization and Soft tissue mobilization For the Purpose of:: To decrease pain and To improve nutrient delivery to tissue Intermittent cervical traction: Yes For the Purpose of:: To decrease pain Re-Evaluation Ending Re-evaluation ending: Please do not hesitate to contact me at [phone] by phone or if you have questions or concerns regarding this new plan of care! Sincerely, Jesusita Pineda, PT, Cert MDT
--- NOTE | 2023-06-18 19:16 | HP.PTDCSUM_ITS ---
Discharge Summary D/C summary: It has been my pleasure to treat JESUSITA BLAND referred by Dr. Anushka Johns MD, with the diagnosis of TRAPEZIUS STRAIN for a total of 18 visit(s). Discharge Date: 02/21/23 Please see the following information for a summary of their discharge status. Subjective Subjective: PATIENT REPORTS SHE IS DOING A LOT BETTER OVER-ALL. SHE REPORTS HER HEADACHES WERE DAILY BEFORE SHE STARTED AND HER NECK PAIN WAS INTENSE. SHE STATES SHE REALLY APPRECIATES ALL THE TIPS FOR HOME AND THE EX'S. Pain NECK: Pain Intensity (Out of 10): 0 UPPER BACK: Pain Intensity (Out of 10): 0 HEADACHE: Pain Intensity (Out of 10): 0 LEFT SHOULDER: Pain Intensity (Out of 10): 1 Overall Improvement % Improvement: 85 Objective Objective/Function: PATIENT WAS SEEN TODAY FOR RE-ASSESSMENT OF PROGRESS TOWARD THE SET PT GOALS AND THE NEED FOR FURTHER PHYSICAL THERAPY VS READINESS FOR DISCHARGE. PATIENT HAS MADE GOOD PROGRESS WITH PT BUT WOULD BENEFIT FROM PT IN THE FUTURE FOR FURTHER POSTURE CORRECTION AND STRENGTHENING. SHE IS REPORTING LESS PAIN AND DEMO'S SOME IMPROVED ROM ALONG WITH NOW HAVING A HOME EX PROGRAM. UPON EXAM TODAY: Motor deficit: B SHLD 4/5, ELBOWS 5/5. 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 Dural Signs: NEGATIVE CARRILLO UE'S. Cervical Mvmt Loss: Flex: NIL Pro: NIL Ext: MOD Ret: MOD RSB: MOD LSB: MOD R Rot: MIN L Rot: MIN PATIENT DENIES INCREASED NECK PAIN DURING AND AFTER ROM TESTING TODAY. Postural strength: FAIR Palpation: NO ACUTE CERVICAL, OCCIPUT, OR UPPER THORACIC TENDERNESS BUT INCREASED MUSCLE TONE THROUGHOUT. Goals Goal 1:: PATIENT WILL REPORT DECREASED HEAD AND NECK PAIN BY 25% TO EASE ADL'S Goal Progress: Goal Met Goal 2:: IMPROVE PERSONAL CARE, SLEEP, WORK, DRIVING AND RECREATIONAL FUNCTION SHOWN BY 5 POINT INCREASE ON NECK OSESTRY Goal Progress: Goal Met Goal 3:: INSTRUCT IN PROPHYLAXIS Goal Progress: Goal Met Plan Plan: D/C DUE TO HAVING FOOT SURGERY TOMORROW. D/C Information d/c sentence: If there are questions or concerns regarding this patient's physical therapy, please feel free to call me at [phone]. Thank you for the referral of this patient. Sincerely, Jesusita Pineda, PT, Cert MDT Balance/Gait/Functional tests Balance/Special Test Scores Oswestry Neck Score: 9 Improvement % Improvement: 85
== END 2023-02-21 19:00 | disposition home or self-care (01) ==
LOC: PT 08:00
PROVIDERS: PCP Family Medicine; Referring Provider Family Medicine; Visit Provider Family Medicine
DX: S46.819D Strain of other muscles, fascia and tendons at shoulder and upper arm level, unspecified arm, subsequent encounter (principal)
CPT/HCPCS: 97112; 97140; 97162; 97164; 97530

== ENCOUNTER → 2023-03-13 | Outpatient (CLI) | payer OTHER, SELFPAY ==
[2023-03-13 12:43] LABS: AST(SGOT) 51 U/L (15-37); Alanine Aminotransfer ALT/SGPT 117 U/L (13-56); Cholesterol 201 mg/dL (200); High Density Lipoprotein 54 mg/dL; Thyroid Stim Hormone (TSH) 1.59 uIU/mL (0.358-3.74); Triglycerides 306 mg/dL; Very Low Density Lipoprotein 61 mg/dL (5-40)
== END | disposition home or self-care (01) ==
LOC: MTLAB 09:52
PROVIDERS: PCP Family Medicine; Referring Provider Family Medicine; Visit Provider Family Medicine
DX: E78.5 Hyperlipidemia, unspecified (principal); F41.9 Anxiety disorder, unspecified
CPT/HCPCS: 36415; 80061; 84443; 84450; 84460

== ENCOUNTER → 2023-03-16 | Outpatient (CLI) | payer OTHER, SELFPAY ==
[2023-03-16 15:22] LABS: Absolute Lymphocyte Count 1.19 X10^3/uL (0.83-4.51); Absolute Neutrophil Count 3.9 X10^3/uL (2.0-7.7); Basophil# 0.03 X10^3/uL; Basophil% 0.5 % (0-1); Eosinophil# 0.17 X10^3/uL; Hematocrit 39.5 % (37-47); Hemoglobin 12.6 g/dL (12.0-15.0); Lymphocyte # 1.19 X10^3/ul (0.83-4.51); Mean Corp Hgb Conc 31.9 g/dL (32-36); Mean Corpuscular Hgb 29.7 pg (27.0-32.0); Mean Corpuscular Volume 93.2 fL (81-99); Mean Platelet Vol. 10.5 fl (6.2-12.0); Monocyte# 0.36 X10^3/uL; Monocyte% 6.3 % (0-10); NRBC Flagged by Analyzer 0 % (0-5); Neutrophil # 3.91 X10^3/uL (2.7-7.7); Neutrophil % 68.8 % (47-70); Platelet Count 314 K/mm3 (150-450); RBC Distribution Width CV 12.7 % (11.6-14.6); RBC Distribution Width SD 43.5 fl (35.1-43.9); Red Blood Count 4.24 M/mm3 (4.2-5.4); White Blood Count 5.7 K/mm3 (4.4-11.0)
[2023-03-16 15:46] LABS: Erythrocyte Sedimentation Rate 8 mm/hr (0-30)
[2023-03-19 15:08] LABS: EBV Acute VCA IgM < 36.0 U/mL (0.0-35.9); EBV Nuclear Antigen IgG < 18.0 U/mL (0.0-17.9)
== END | disposition home or self-care (01) ==
LOC: MFPLAB 11:57
PROVIDERS: PCP Family Medicine; Visit Provider Family Medicine
DX: R79.89 Other specified abnormal findings of blood chemistry (principal)
CPT/HCPCS: 36415; 85025; 85652; 86664; 86665

== ENCOUNTER → 2023-03-29 | Outpatient (CLI) | payer OTHER, SELFPAY ==
--- OUTSIDE RECORDS SUMMARY | 2023-03-29 15:52 | XMS RPT_ITS | CCD ---
Author Name Unknown Address [address] [facility] [address] [place] [address] Organization [facility] Care Team Providers Care Turbine Operator Name Role Phone FRANCO BARKER Unavailable Unavailable Anushka Johns Primary Care Provider Anushka Johns Primary Care Provider Anushka Johns Mela Primary Care Provider [phone] Anushka Johns Primary Care Provider NATAN BRUNNER Attending Unavailable ANUSHKA JOHNS MELA Primary Care Unavailable ONDINA ZABALA Attending Unavailable ANUSHKA JOHNS MELA Primary Care Unavailable ONDINA ZABALA Referring Unavailable ANUSHKA JOHNS MELA Primary Care Unavailable Allergies Allergy Classification Reported Allergen(s) Allergy Type Date of Onset Reaction(s) Facility (2 sources) OTHER; Translations: [OTHER] Propensity to adverse reactions (disorder) 6 [facility] Other [facility] (7 sources) enviromental [Other] Propensity to adverse reactions 6 [facility] Medications Current Medications Medication Drug Class(es) Dates Sig (Normalized) Sig (Original) amoxicillin 875 mg / clavulanate 125 mg oral tablet (1 source) Penicillin-class Antibacterial Start: 09-19-2021 End: 09-26-2021 take 1 tablet by mouth twice daily amoxicillin-clav ulanic acid (AUGMENTIN) 875-125 mg per tablet Indications: Acute otitis media, right Take 1 tablet by mouth twice daily for 7 days. 14 tablet 0 09/19/2021 09/26/2021 Active Completed/Discontinued Medications Medication Drug Class(es) Dates Sig (Normalized) Sig (Original) acetaminophen 325 mg / traMADol hydrochloride 37.5 mg oral tablet (7 sources) Opioid Agonist Start: 05-22-2011 take 1 tablet by mouth once as needed TRAMADOL-ACETAMIN OPHEN 37.5-325 mg per tablet Take 1 tablet by mouth as needed. 0 05/22/2011 Active Problems Active Problems Problem Classification Problem Date Documented Da te Episodic/Chronic Malaise and fatigue (7 sources) Fatigue; Translations: [Chronic fatigue, unspecified] Onset: 06-25-2014 06-25-2014 Chronic Nutritional deficiencies (7 sources) Vitamin D deficiency; Translations: [Vitamin D deficiency, unspecified] Onset: 06-25-2014 06-25-2014 Chronic Other gastrointestinal disorders (7 sources) Celiac disease; Translations: [Celiac disease] Onset: 03-12-2008 11-15-2017 Chronic Other lower respiratory disease (1 source) Shortness of breath; Translations: [Shortness of breath] Onset: 12-03-2017 Episodic Other lower respiratory disease (1 source) Cough; Translations: [Cough] Onset: 12-03-2017 Episodic Other screening for suspected conditions (not mental disorders or infectious disease) (4 sources) Patient encounter status; Translations: [Encounter for screening mammogram for malignant neoplasm of breast] Onset: 11-24-2022 Episodic Other upper respiratory disease (7 sources) Allergic rhinitis due to pollen; Translations: [Allergic rhinitis due to pollen] Onset: 02-06-2018 02-06-2018 Chronic Other upper respiratory disease (7 sources) Seasonal allergic rhinitis; Translations: [Other allergic rhinitis] Onset: 02-06-2018 02-06-2018 Chronic Other upper respiratory disease (1 source) Chronic rhinitis; Translations: [Chronic rhinitis] Chronic Past or Other Problems Problem Classification Problem Date Documented Da te Episodic/Chronic Other bone disease and musculoskeletal deformities (7 sources) Osteopenia; Translations: [Other specified disorders of bone density and structure, unspecified site] Onset: 06-25-2014 06-25-2014 Episodic Other lower respiratory disease (7 sources) Chronic cough; Translations: [Chronic cough] Onset: 11-15-2017 11-15-2017 Episodic Other lower respiratory disease (7 sources) Dyspnea; Translations: [Shortness of breath] Onset: 11-15-2017 11-15-2017 Episodic Other nutritional; endocrine; and metabolic disorders (7 sources) History of Graves' disease; Translations: [Personal history of other endocrine, nutritional and metabolic disease] Onset: 04-08-2008 06-25-2014 Episodic Results Test Name Value Interpretation Reference Range Facil ity Vital Signs Date Time Vital Sign Value Performing Clinician Marcelino rodriguez 05-15-2022 08:40-0500 Body height 157.5 cm Ondina Zabala MD Work Phone: [facility] 05-15-2022 08:40-0500 Body weight 64.41 kg Ondina Zabala MD Work Phone: [facility] 05-15-2022 08:40-0500 Diastolic blood pressure 64 mm[Hg] Ondina Zabala MD Work Phone: [facility] 05-15-2022 08:40-0500 Systolic blood pressure 110 mm[Hg] Ondina Zabala MD Work Phone: [facility] Encounters Encounter Date Encounter Type Care Provider Facility Start: 11-27-2022 Documentation procedure Mammog liu Coordinator [facility] Start: 11-27-2022 Letter encounter Mammography Coordinator [facility] Department Start: 11-24-2022 End: 11-24-2022 ambulatory ONDINA ZABALA Facility:[facility] Start: 11-24-2022 Encounter for gynecological examination (general) (routine) without abnormal findings NATAN BRUNNER [facility] Start: 11-24-2022 End: 11-24-2022 Patient encounter status Screen [facility] Start: 11-24-2022 End: 11-24-2022 Subsequent hospital visit by physician Screen Mammo [facility] Mammogram Procedures Date Procedure Procedure Detail Performing Clinician Start: 11-24-2022 Screening digital br east tomosynthesis bi Ondina Zabala MD Work Phone: Start: 11-11-2021 Mammography Mammograph y Coordinator Start: 10-15-2020 Mammography Kajal caballero CERAMIC COATER MACHINE.FRUIT HARVEST MACHINE OPERATOR Work Phone: Start: 10-06-2013 Lipid 1996 panel - S sayra or Plasma Mammography Coordinator Plan of Treatment Date Care Activity Detail Author Start: 04-08-2026 HPV TESTING HPV TESTING [facility] Start: 04-08-2026 PAP TESTING PAP TESTING [facility] Start: 11-25-2023 Mammography Mammogram Screening [facility] Start: 11-11-2022 Mammography MAMMOGRAM [facility] Start: 11-10-2022 Covid-19 Vaccine ( season) Covid-19 Vaccine ( season) [facility] Start: 11-10-2022 Influenza vaccination Influenza Vaccine (#1) [facility] Start: 03-12-2022 DEPRESSION ASSESSMENT DEPRESSION ASSESSMENT [facility] Start: 11-10-2021 Influenza vaccination INFLUENZA (#1) [facility] Start: 10-15-2021 Mammography MAMMOGRAM [facility] Start: 04-04-2021 COVID-19 VACCINE (4 - Booster for Moderna series) COVID-19 VACCINE (4 - Booster for Moderna series) [facility] Start: 04-04-2021 Covid-19 Vaccine (4 - Moderna series) Covid-19 Vaccine (4 - Moderna series) [facility] Start: 03-12-2021 DEPRESSION ASSESSMENT DEPRESSION ASSESSMENT [facility] Start: 11-19-2020 COLOGUARD (FIT-DNA) COLOGUARD (FIT-DNA) [facility] Start: 11-19-2020 Colonoscopy COLONOSCOPY [facility] Start: 11-19-2020 COLORECTAL CANCER SCREENING COLORECTAL CANCER SCREENING [facility] Start: 11-19-[address] COLONOGRAPHY [facility] Start: 11-19-2020 DIABETES SCREEN DIABETES SCREEN [facility] Start: 11-19-2020 Diabetes Screening Diabetes Screening [facility] Start: 11-19-2020 FECAL OCCULT BLOOD FECAL OCCULT BLOOD [facility] Start: 11-19-2020 Lipid 1996 panel - Serum or Plasma Lipid Screening [facility] Start: 11-19-2020 LIPID SCREEN LIPID SCREEN [facility] Start: 11-19-2020 SIGMOIDOSCOPY SIGMOIDOSCOPY [facility] Start: 11-19-1994 Urine microalbumin profile [facility] Start: 11-19-1993 HEPATITIS C SCREENING HEPATITIS C SCREENING [facility] Start: 11-19-1993 HIV SCREENING HIV SCREENING [facility] Start: 1987 Adult depression screening assessment DEPRESSION SCREENING [facility] Start: 1975 HEPATITIS B (1 of 3 - 3-dose series) HEPATITIS B (1 of 3 - 3-dose series) [facility] Start: 1975 Hepatitis B Vaccine (1 of 3 - 3-dose series) Hepatitis B Vaccine (1 of 3 - 3-dose series) [facility] End: 11-11-2021 LINDY SCREENING W JEB [facility] Work Phone: Immunizations Immunization Date Immunization Notes Care Provider Jake flakomichael 01-12-2021 influenza virus vaccine, unspecified formulation Mammography Coordinator [facility] 03-23-2009 novel [id number], all formulations Kajal Oneal CERAMIC COATER MACHINE.FRUIT HARVEST MACHINE OPERATOR Work Phone: [facility] 01-16-2007 influenza virus vaccine, unspecified formulation Kajal Oneal CERAMIC COATER MACHINE.FRUIT HARVEST MACHINE OPERATOR Work Phone: [facility] Work Phone: Payers Date Payer Category Payer Private Health Insurance [employer] A ETNA CHOICE POS II [id number] 2011-Present [phone] [address] [place] [address] POS [id number] 2011 Private Health Insurance [id number] 2011 Private Health Insurance [id number] Social History Date Type Detail Facility Start: 08-15-2012 End: 05-15-2022 Tobacco smoking status NHIS Ex-smoker [facility] Work Phone: End: 07-14-2001 History of tobacco use Current smoker [facility] Work Phone: Start: 09-19-2021 End: 05-15-2022 Alcohol intake Current drinker of alcohol (finding) [facility] Start: 09-19-2021 End: 11-24-2022 Alcohol intake [facility] Start: 06-28-2016 History SDOH Alcohol Comment Socially [facility] Start: 1975 Sex Assigned At Not on file [facility] Start: 09-09-2021 End: 11-11-2021 Exposure to SARS-CoV-2 (event) Not sure [facility] End: 07-14-2001 History of tobacco use Cigarette Smoker [facility] Start: 08-15-2012 End: 05-15-2022 Tobacco use and exposure Smokeless tobacco non-user [facility] Start: 05-15-2022 End: 11-24-2022 Tobacco use panel [facility] National Score (1-100), lower number is lower risk 41 [facility] Clinical Notes 12-07-2006 to 11-27-2022 Letter - Coordinator, Mammography - 11/27/2022 7:57 AM Rosalia Morales RT(R) - 11/24/2022 1:30 PM Silvano Zabala MD - 05/15/2022 8:37 AM Nixon Brunner MD - 02/27/2022 2:03 PM EST Note Date & Type Note Facility 11-27-2022 Miscellaneous Notes November 27, 2022 PID: [id number] Jesusita Del Real [address] [place] [place] [address] Dear Ms. Del Real, We are pleased to inform you that the results of your recent breast imaging exam on 11/24/2022 are normal. Your mammogram demonstrates that you have dense breast tissue, which could hide abnormalities. Dense breast tissue, in and of itself, is a relatively common condition. Therefore, this information is not provided to cause undue concern; rather, it is to raise your awareness and promote discussion with your health care provider regarding the presence of dense breast tissue in addition to other risk factors. Early detection of cancer is very important. We also understand recommendations regarding breast cancer screening are controversial. Please discuss with your primary care provider which strategy is best for you and whether a mammogram is right for you. Your imaging studies and report will be kept on file at [facility] as part of your permanent medical record and are available for your continuing care. Thank you for allowing us to help in meeting your health care needs. Sincerely, Dr. Serna Interpreting Radiologist [facility] (Normal over 40) documented in this encounter [facility] 11-24-2022 Note HNO ID: [id number] Author: Rosalia Cooley RT(R) Service: Radiology Author Type: Boat Garnisher Type: Progress Notes Filed: 11/24/2022 1:31 PM Note Text: Radiology Service Progress Note PATIENT NAME: Jesusita Del Real DATE OF SERVICE: November 24, 2022 TIME: 1:31 PM PATIENT IDENTITY VERIFICATION COMPLETED USING TWO (2) IDENTIFIERS: Name and Date of confirmed by patient verbally. FALL SCREENING: Has the patient had 2 falls in the last year or 1 fall with injury or currently using an Ambulatory Assistive Device (Walker, Cane, Wheelchair, Crutches, etc.)? No PATIENT GENDER DATA: Female. status: : No status: NO. PATIENT RELEVANT IMPLANT DATA REVIEWED: Yes RADIOLOGY DEPARTMENT: Mammography PERIPHERAL IV DATA: Not applicable SIGNED BY: RT Dorian(R) November 24, 2022 1:[address] [facility] 11-24-2022 History of Presen t illness Narrative Radiology Service Progress Note PATIENT NAME: Jesusita Del Real DATE OF SERVICE: November 24, 2022 TIME: 1:31 PM PATIENT IDENTITY VERIFICATION COMPLETED USING TWO (2) IDENTIFIERS: Name and Date of confirmed by patient verbally. FALL SCREENING: Has the patient had 2 falls in the last year or 1 fall with injury or currently using an Ambulatory Assistive Device (Walker, Cane, Wheelchair, Crutches, etc.)? No PATIENT GENDER DATA: Female. status: : No status: NO. PATIENT RELEVANT IMPLANT DATA REVIEWED: Yes RADIOLOGY DEPARTMENT: Mammography PERIPHERAL IV DATA: Not applicable SIGNED BY: RT Dorian(R) November 24, 2022 1:31 PM documented in this encounter [facility] 05-15-2022 Note HNO ID: [id number] Author: Ondina Zabala MD Service: ? Author Type: Physician Type: Progress Notes Filed: 05/15/2022 9:06 AM Note Text: Jesusita is a 46 year old who presents for an annual gynecologic exam with complaints, breakthrought bleeding w/ extended regimen pills. Not really heavy . Menses: varies on extended OCPs. 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 LMP: 05/02/2022 (Exact Date), Having periods Age at Menarche: Age at First : Age at Menopause: Staple Cutter History Comments: Sexual Activity: Yes; Male Contraception: Vasectomy PAST MEDICAL HISTORY Diagnosis Date Celiac disease 2009 Fibroadenosis of breast Irritable bowel syndrome Lipoma 07/27/2011 Migraine, unspecified, with intractable migraine, so stated, without mention of status migrainosus menstrual Osteopenia Toxic diffuse goiter without mention of thyrotoxic crisis or storm 02/[address] Menjivar PAST SURGICAL HISTORY Procedure Laterality Date APPENDECTOMY 1995 PAST SURGICAL HISTORY OF many moles removed PAST SURGICAL HISTORY OF 2002 tumor from left thumb PAST SURGICAL HISTORY OF 2005 septo plasty PAST SURGICAL HISTORY OF 2003 RIGHT BREAST BIOPSY PAST SURGICAL HISTORY OF 2011 tumor removed off of neck FAMILY HISTORY Problem Relation Age of Onset Diabetes Mother Breast Cancer Mother 55 Lipids Mother Allergies Mother Prostate Cancer Father Heart Maternal Grandfather 60 HI Heart Paternal Grandfather HI Asthma Daughter She outgrew it. Thyroid Sister Lipids Brother SOCIAL HISTORY Social History Tobacco Use Smoking status: Former Years: 4.00 Types: Cigarettes Quit date: 07/14/2001 Years since quittin.8 Smokeless tobacco: Never Vaping Use Vaping Use: Never used Substance Use Topics Alcohol use: Yes Alcohol/week: 40.0 standard drinks Comment: Socially Drug use: No REVIEW OF SYSTEMS Abdomen: No abdominal pain, nausea, vomiting, diarrhea, or constipation. No bloating, early satiety, indigestion, or increased flatulence. Bladder: No dysuria, gross hematuria, urinary frequency, urinary urgency, or incontinence. Breast: No breast lumps, nipple d/c, overlying skin changes, redness or skin retraction. Allergies and current medication updated:Yes EXAM: BP 110/64 Ht 5' 2 (1.58m) Wt 142 lb (64.4kg) LMP 05/02/2022 BMI 25.97 kg/(m2). GENERAL: pleasant, female in no apparent distress HEENT: Normocephalic, atraumatic, mucus membranes moist, and no lesions NECK: Supple, full range of motion, no adenopathy, and thyroid normal DERMATOLOGY: Normal, without lesions, non-icteric, and non-hirsute BREAST: soft, non-tender, symmetric, no dominant mass, normal nipple-areolar complex, no lymphadenopathy, and no nipple discharge CHEST: Normal inspiratory effort ABDOMEN: soft, non-tender, and no masses PELVIC: external genitalia normal, normal Bartholin's glands, urethra, Meadowdale's glands, no vulvar lesions, no cervical lesions, good vaginal support, physiologic discharge present, normal appearing perineal body and perianal region BIMANUAL: uterus normal size, shape and consistency, no adnexal masses, and non-tender RECTOVAGINAL: deferred. NEURO: alert and oriented x3,exam grossly non-focal EXTREMITIES: normal ASSESSMENT/PLAN: 1) Health maintenance: Pap/HPV up to date. Mammogram up to date . 2) Contraception: combined hormonal contraceptives. Contraceptive options reviewed and information provided. 3) STD screening: Declined STD check. 4) Follow up one year or sooner as needed Ondina Zabala MD [facility] 05-15-2022 History of Presen t illness Narrative Jesusita is a 46 year old who presents for an annual gynecologic exam with complaints, breakthrought bleeding w/ extended regimen pills. Not really heavy . Menses: varies on extended OCPs. 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 LMP: 05/02/2022 (Exact Date), Having periods Age at Menarche: Age at First : Age at Menopause: Staple Cutter History Comments: Sexual Activity: Yes; Male Contraception: Vasectomy PAST MEDICAL HISTORY Diagnosis Date Celiac disease 2008 Fibroadenosis of breast Irritable bowel syndrome Lipoma 07/27/2011 Migraine, unspecified, with intractable migraine, so stated, without mention of status migrainosus menstrual Osteopenia Toxic diffuse goiter without mention of thyrotoxic crisis or storm 02/[address] Menjivar PAST SURGICAL HISTORY Procedure Laterality Date APPENDECTOMY 1995 PAST SURGICAL HISTORY OF many moles removed PAST SURGICAL HISTORY OF 2003 tumor from left thumb PAST SURGICAL HISTORY OF 2005 septo plasty PAST SURGICAL HISTORY OF 2003 RIGHT BREAST BIOPSY PAST SURGICAL HISTORY OF 2011 tumor removed off of neck FAMILY HISTORY Problem Relation Age of Onset Diabetes Mother Breast Cancer Mother 55 Lipids Mother Allergies Mother Prostate Cancer Father Heart Maternal Grandfather 60 HI Heart Paternal Grandfather HI Asthma Daughter She outgrew it. Thyroid Sister Lipids Brother SOCIAL HISTORY Social History Tobacco Use Smoking status: Former Years: 4.00 Types: Cigarettes Quit date: 07/14/2001 Years since quittin.8 Smokeless tobacco: Never Vaping Use Vaping Use: Never used Substance Use Topics Alcohol use: Yes Alcohol/week: 40.0 standard drinks Comment: Socially Drug use: No REVIEW OF SYSTEMS Abdomen: No abdominal pain, nausea, vomiting, diarrhea, or constipation. No bloating, early satiety, indigestion, or increased flatulence. Bladder: No dysuria, gross hematuria, urinary frequency, urinary urgency, or incontinence. Breast: No breast lumps, nipple d/c, overlying skin changes, redness or skin retraction. Allergies and current medication updated:Yes EXAM: BP 110/64 Ht 5' 2 (1.58m) Wt 142 lb (64.4kg) LMP 05/02/2022 BMI 25.97 kg/(m^2). GENERAL: pleasant, female in no apparent distress HEENT: Normocephalic, atraumatic, mucus membranes moist, and no lesions NECK: Supple, full range of motion, no adenopathy, and thyroid normal DERMATOLOGY: Normal, without lesions, non-icteric, and non-hirsute BREAST: soft, non-tender, symmetric, no dominant mass, normal nipple-areolar complex, no lymphadenopathy, and no nipple discharge CHEST: Normal inspiratory effort ABDOMEN: soft, non-tender, and no masses PELVIC: external genitalia normal, normal Bartholin's glands, urethra, Meadowdale's glands, no vulvar lesions, no cervical lesions, good vaginal support, physiologic discharge present, normal appearing perineal body and perianal region BIMANUAL: uterus normal size, shape and consistency, no adnexal masses, and non-tender RECTOVAGINAL: deferred. NEURO: alert and oriented x3,exam grossly non-focal EXTREMITIES: normal ASSESSMENT/PLAN: 1) Health maintenance: Pap/HPV up to date. Mammogram up to date . 2) Contraception: combined hormonal contraceptives. Contraceptive options reviewed and information provided. 3) STD screening: Declined STD check. 4) Follow up one year or sooner as needed Ondina Zabala MD documented in this encounter [facility] 02-27-2022 Note HNO ID: [id number] Author: Natan Brunner MD Service: ? Author Type: Physician Type: Progress Notes Filed: 02/27/2022 2:18 PM Note Text: History: Jesusita Del Real is seen at the request of . Jesusita Del Real, a 46 year old female, presents for evaluation of near constant nasal congestion. Tried flonase on limited basis. S/p septo 10 y ago - some improv. No improv w shots. Takes claritin during allergy season. Denies nasal obstruction, nasal congestion, runny-nose, post-nasal drip, facial pressure, headaches, nosebleeds, cough, sorethroat. + allergies. No history of sinus/nasal surgery. PAST MEDICAL HISTORY Diagnosis Date - Celiac disease 2008 - Fibroadenosis of breast - Irritable bowel syndrome - Lipoma 07/27/2011 - Migraine, unspecified, with intractable migraine, so stated, without mention of status migrainosus menstrual - Osteopenia - Toxic diffuse goiter without mention of thyrotoxic crisis or storm 02/[address] Menjivar PAST SURGICAL HISTORY Procedure Laterality Date - APPENDECTOMY 1995 - PAST SURGICAL HISTORY OF many moles removed - PAST SURGICAL HISTORY OF 2002 tumor from left thumb - PAST SURGICAL HISTORY OF 2005 septo plasty - PAST SURGICAL HISTORY OF 2003 RIGHT BREAST BIOPSY - PAST SURGICAL HISTORY OF 2011 tumor removed off of neck PE: Alert; oriented; well-developed; no apparent distress. Normal voice; normal communication. Eyes: EOMI, pupils symmetric and reactive bilaterally. Nose: patent, normal mucosa, no congestion, no rhinorrhea, no purulence, no crusting, septum midline, no turbinate hypertropy. No valve collapse. Oral cavity, oropharynx: No ulcerative or mass lesions, tongue midline, palate elevates symmetrically, tongue base and floor of mouth soft. Neck: nontender, no lymphadenopathy or masses. Thyroid: no masses. Face: symmetric, sinuses nontender, skin without lesions. Salivary glands: normal size, nontender, no masses. Ears: EACs free of lesions. TMs clear and mobile. Neurologic: dye weigher helper II-XII grossly intact. Procedure: Sinonasal endoscopy. Indication: Nasal congestion. R/o infection, lesion. Description of procedure: A flexible laryngoscope was used to visualize the nasal cavity. The mucosa was as above. Left: Polyps were not noted in the middle meatus. Purulence was not noted in the middle meatus. Polyps were not noted in the spenoethmoid recess. Purulence was not noted in the sphenoethmoid recess. Right: Polyps were not noted in the middle meatus. Purulence was not noted in the middle meatus. Polyps were not noted in the spenoethmoid recess. Purulence was not noted in the sphenoethmoid recess. The nasopharynx was free of ulcerative or mass lesions. Assessment/Plan: Nasal congestion. Reassured nasal anatomy wnl. Caution pursuing SMR, nasal valve surgery. Reconsider daily Neilmed, flonase. F/up prn. Medical Decision Making: Problems: Low: Stable chronic illness Risk: Low: Low risk from testing/treatment Medical Decision Making Level: 3 - Low [facility] 02-27-2022 History of Presen t illness Narrative History: Jesusita Del Real is seen at the request of . Jesusita Del Real, a 46 year old female, presents for evaluation of near constant nasal congestion. Tried flonase on limited basis. S/p septo 10 y ago - some improv. No improv w shots. Takes claritin during allergy season. Denies nasal obstruction, nasal congestion, runny-nose, post-nasal drip, facial pressure, headaches, nosebleeds, cough, sorethroat. + allergies. No history of sinus/nasal surgery. PAST MEDICAL HISTORY Diagnosis Date Celiac disease 2008 Fibroadenosis of breast Irritable bowel syndrome Lipoma 07/27/2011 Migraine, unspecified, with intractable migraine, so stated, without mention of status migrainosus menstrual Osteopenia Toxic diffuse goiter without mention of thyrotoxic crisis or storm 02/[address] Menjivar PAST SURGICAL HISTORY Procedure Laterality Date APPENDECTOMY 1995 PAST SURGICAL HISTORY OF many moles removed PAST SURGICAL HISTORY OF 2002 tumor from left thumb PAST SURGICAL HISTORY OF 2005 septo plasty PAST SURGICAL HISTORY OF 2003 RIGHT BREAST BIOPSY PAST SURGICAL HISTORY OF 2012 tumor removed off of neck PE: Alert; oriented; well-developed; no apparent distress. Normal voice; normal communication. Eyes: EOMI, pupils symmetric and reactive bilaterally. Nose: patent, normal mucosa, no congestion, no rhinorrhea, no purulence, no crusting, septum midline, no turbinate hypertropy. No valve collapse. Oral cavity, oropharynx: No ulcerative or mass lesions, tongue midline, palate elevates symmetrically, tongue base and floor of mouth soft. Neck: nontender, no lymphadenopathy or masses. Thyroid: no masses. Face: symmetric, sinuses nontender, skin without lesions. Salivary glands: normal size, nontender, no masses. Ears: EACs free of lesions. TMs clear and mobile. Neurologic: dye weigher helper II-XII grossly intact. Procedure: Sinonasal endoscopy. Indication: Nasal congestion. R/o infection, lesion. Description of procedure: A flexible laryngoscope was used to visualize the nasal cavity. The mucosa was as above. Left: Polyps were not noted in the middle meatus. Purulence was not noted in the middle meatus. Polyps were not noted in the spenoethmoid recess. Purulence was not noted in the sphenoethmoid recess. Right: Polyps were not noted in the middle meatus. Purulence was not noted in the middle meatus. Polyps were not noted in the spenoethmoid recess. Purulence was not noted in the sphenoethmoid recess. The nasopharynx was free of ulcerative or mass lesions. Assessment/Plan: Nasal congestion. Reassured nasal anatomy wnl. Caution pursuing SMR, nasal valve surgery. Reconsider daily Neilmed, flonase. F/up prn. Medical Decision Making: Problems: Low: Stable chronic illness Risk: Low: Low risk from testing/treatment Medical Decision Making Level: 3 - Low documented in this encounter [facility] 11-13-2021 Miscellaneous Notes November 13, 2021 PID: [id number] Jesusita Del Real [address] [place] [place] [address] Dear Ms. Del Real, We are pleased to inform you that the results of your recent breast imaging exam on 11/11/2021 are normal. Your mammogram demonstrates that you have dense breast tissue, which could hide abnormalities. Dense breast tissue, in and of itself, is a relatively common condition. Therefore, this information is not provided to cause undue concern; rather, it is to ra ise your awareness and promote discussion with your health care provider regarding the presence of dense breast tissue in addition to other risk factors. Early detection of cancer is very important. We also understand recommendations regarding breast cancer screening are controversial. Please discuss with your primary care provider which strategy is best for you and whether a mammogram is right for you. Your imaging studies and report will be kept on file at [facility] as part of your permanent medical record and are available for your continuing care. Thank you for allowing us to help in meeting your health care needs. Sincerely, Dr. Berman Interpreting Radiologist [facility] (Normal over 40) documented in this encounter [facility] 11-11-2021 History of Presen t illness Narrative Radiology Service Progress Note PATIENT NAME: Jesusita Del Real DATE OF SERVICE: November 11, 2021 TIME: 2:06 PM PATIENT IDENTITY VERIFICATION COMPLETED USING TWO (2) IDENTIFIERS: Name and Date of confirmed by patient verbally. FALL SCREENING: Has the patient had 2 falls in the last year or 1 fall with injury or currently using an Ambulatory Assistive Device (Walker, Cane, Wheelchair, Crutches, etc.)? No PATIENT GENDER DATA: Female. status: : No status: NO. PATIENT RELEVANT IMPLANT DATA REVIEWED: Not Applicable RADIOLOGY DEPARTMENT: Mammography PERIPHERAL IV DATA: Not applicable SIGNED BY: RT Denny(R) November 11, 2021 2:06 PM documented in this encounter [facility] 09-21-2021 Miscellaneous Notes Patient notified.Arielle Laguna LPN Patient did not review message. Please reach out and discuss following You tested negative for COVID. If you were tested because you were having symptoms, please monitor these symptoms and for any worrisome symptoms, please call your primary care provider or schedule a visit with [facility]. documented in this encounter [facility] documented as of this encounter (statuses as of 09/21/2021) [address]2007 History of Past illness Narrative* Problem Noted Date Resolved Date Supervision of normal first 12/07/2006 08/12/2007 documented as of this encounter (statuses as of 11/12/2021) [address] History of Past illness Narrative* Problem Noted Date Resolved Date Supervision of normal first 12/07/2006 08/12/2007 documented as of this encounter (statuses as of 11/15/2021) [place] [id number] History of Past illness Narrative* Problem Noted Date Resolved Date Supervision of normal first 12/07/2006 08/12/2007 documented as of this encounter (statuses as of 02/27/2022) [address] History of Past illness Narrative* Problem Noted Date Resolved Date Supervision of normal first 12/07/2006 08/12/2007 documented as of this encounter (statuses as of 05/15/2022) [address] History of Past illness Narrative* Problem Noted Date Diagnosed Date Resolved Date Supervision of normal first 12/07/2006 08/12/2007 documented as of this encounter (statuses as of 11/29/2022) [address] History of Past illness Narrative* Problem Noted Date Diagnosed Date Resolved Date Supervision of normal first 12/07/2006 08/12/2007 documented as of this encounter (statuses as of 01/14/2023) [facility] Diagnosis Encounter for gynecological examination (general) (routine) without abnormal findings Encounter for screening mammogram for breast cancer [facility] Diagnosis Chronic rhinitis- Primary [facility] Diagnosis Encounter for gynecological examination (general) (routine) without abnormal findings- Primary Encounter for screening mammogram for breast cancer [facility] Diagnosis Encounter for gynecological examination (general) (routine) without abnormal findings Encounter for screening mammogram for breast cancer documented [facility] ([facility]ative)* Diagnostic Procedure Only (Routine) - Closed Specialty Diagnoses / Procedures Referred By Contac t Referred To Contact [facility] Diagnoses Encounter for gynecological examination (general) (routine) without abnormal findings Encounter for screening mammogram for breast cancer Procedures LINDY SCREENING W JEB SCREENING DIGITAL BREAST TOMOSYNTHESIS BI SCREENING MAMMOGRAPHY BI 2-VIEW BREAST INC Ondina Del Real MD [address] [place] [address] [facility] [address] [place] [address] Referral ID Status Reason Start Date Expiration Date V isits Requested Visits Authorized [id number] Closed Auto-Generate d Referral 04/08/2021 05/08/2022 1 1 [facility] (narrative)* Diagnostic Procedure Only (Routine) - Pending Review Specialty Diagnoses / Procedures Referred By Larry palomo Referred To Contact [facility] Diagnoses Encounter for gynecological examination (general) (routine) without abnormal findings Encounter for screening mammogram for breast cancer Procedures LINDY SCREENING W JEB SCREENING DIGITAL BREAST TOMOSYNTHESIS BI SCREENING MAMMOGRAPHY BI 2-VIEW BREAST INC Ondina Del Real MD [address] [place] [address] [facility] [address] [place] [address] Referral ID Status Reason Start Date Expiration Date Visits Requested Visits Authorized [id number] Pending Review Auto-Generat ed Referral 05/15/2022 06/14/2023 1 1 [facility] for referral (narrative)* Diagnostic Procedure Only (Routine) - Closed Specialty Diagnoses / Procedures Referred By Rosyac t Referred To Contact [facility] Diagnoses Encounter for gynecological examination (general) (routine) without abnormal findings Encounter for screening mammogram for breast cancer Procedures LINDY SCREENING W JEB SCREENING DIGITAL BREAST TOMOSYNTHESIS BI SCREENING MAMMOGRAPHY BI 2-VIEW BREAST INC Ondina Del Real MD [address] [place] [address] [facility] [address] [place] [address] Referral ID Status Reason Start Date Expiration Date V isits Requested Visits Authorized [id number] Closed Auto-Generate d Referral 05/15/2022 06/14/2023 1 1 [facility] for visit Narrative* Diagnostic Procedure Only (Routine) - Closed Specialty Diagnoses / Procedures Referred By Contac t Referred To Contact [facility] Diagnoses Encounter for gynecological examination (general) (routine) without abnormal findings Encounter for screening mammogram for breast cancer Procedures LINDY SCREENING W JEB SCREENING DIGITAL BREAST TOMOSYNTHESIS BI SCREENING MAMMOGRAPHY BI 2-VIEW BREAST INC Ondina Del Real MD [address] [place] [address] [facility] [address] [place] [address] Referral ID Status Reason Start Date Expiration Date V isits Requested Visits Authorized [id number] Closed Auto-Generate d Referral 04/08/2021 05/08/2022 1 1 [facility] for visit Narrative* Diagnostic Procedure Only (Routine) - Closed Specialty Diagnoses / Procedures Referred By Larry palomo Referred To Contact [facility] Diagnoses Encounter for gynecological examination (general) (routine) without abnormal findings Encounter for screening mammogram for breast cancer Procedures LINDY SCREENING W JEB SCREENING DIGITAL BREAST TOMOSYNTHESIS BI SCREENING MAMMOGRAPHY BI 2-VIEW BREAST INC Ondina Del Real MD [address] [place] [address] [facility] [address] [place] [address] Referral ID Status Reason Start Date Expiration Date V isits Requested Visits Authorized [id number] Closed Auto-Generate d Referral 05/15/2022 06/14/2023 1 1 [facility] Summary Purpose Family History No Family History Records FoundNo Family History Records Found Advance Directives No Advanced Directives Records FoundNo Advanced Directives Records Found Additional Source Comments INFORMATION SOURCE (unrecogn ized section and content) DATE CREATED AUTHOR AUTHOR'S WEI GALO 11/30/[address] [facility] Source Comments (unrecognize d section and content) In the event this informatio n is protected by the Federal Confidentiality of Alcohol and Drug Abuse Patient Records regulations: The Federal rules restrict any use of the information to criminally investigate or prosecute any alcohol or drug abuse patient.[facility] the event this information is protected by the Federal Confidentiality of Alcohol and Drug Abuse Patient Records regulations: The Federal rules restrict any use of the information to criminally investigate or prosecute any alcohol or drug abuse patient.[facility] the event this information is protected by the Federal Confidentiality of Alcohol and Drug Abuse Patient Records regulations: The Federal rules restrict any use of the information to criminally investigate or prosecute any alcohol or drug abuse patient.[facility] the event this information is protected by the Federal Confidentiality of Alcohol and Drug Abuse Patient Records regulations: The Federal rules restrict any use of the information to criminally investigate or prosecute any alcohol or drug abuse patient.[facility] the event this information is protected by the Federal Confidentiality of Alcohol and Drug Abuse Patient Records regulations: The Federal rules restrict any use of the information to criminally investigate or prosecute any alcohol or drug abuse patient.[facility] the event this information is protected by the Federal Confidentiality of Alcohol and Drug Abuse Patient Records regulations: The Federal rules restrict any use of the information to criminally investigate or prosecute any alcohol or drug abuse patient.[facility] the event this information is protected by the Federal Confidentiality of Alcohol and Drug Abuse Patient Records regulations: The Federal rules restrict any use of the information to criminally investigate or prosecute any alcohol or drug abuse patient.[facility] Reason for Visit (unrecogniz ed section and content) Reason Comments Difficulty Breathing Reason Comments Yearly Exam Care Teams (unrecognized sec tion and content) Turbine Operator Relationship Specialty Start Date End Date Anushka Johns [address] [place] [address] PCP - General 05/13/03 Turbine Operator Relationship Specialty Start Date End Date Anushka Johns [address] [place], [place] [id number] PCP - General 05/13/03 Turbine Operator Relationship Specialty Start Date End Date Anushka Johns [address] [place] [address] PCP - General 05/13/03 Turbine Operator Relationship Specialty Start Date End Date Anushka Johns [address] [place], [place] [address] PCP - General 05/13/03 Turbine Operator Relationship Specialty Start Date End Date Anushka Johns [address] [place], [place] [address] [facility] General 05/13/03 FOR RECORDS PERTAINING TO PATIENTS WHO ARE OR HAVE BEEN ENROLLED IN A CHEMICAL DEPENDENCY/SUBSTANCEABUSE PROGRAM, SOME INFORMATION MAY BE OMITTED. This clinical summary was aggregated from multiple sources. Caution should be exercised in using it in the provision of clinical care. This summary normalizes information from multiple sources, and as a consequence, information in this document may materially change the coding, format and clinical context of patient data. In addition, data may be omitted in some cases. CLINICAL DECISIONS SHOULD BE BASED ON THE PRIMARY CLINICAL RECORDS. [facility] [employer] [facility]. provides no warranty or guarantee of the accuracy or completeness of information in this document.
[2023-03-29 18:22] LABS: AST(SGOT) 50 U/L (15-37); Alanine Aminotransfer ALT/SGPT 107 U/L (13-56); Albumin, Serum 4.2 g/dL (3.2-5.0); Alkaline Phosphatase 75 U/L (45-117); Bilirubin, Direct 0.12 mg/dL (0.00-0.30); Globulin 3.4 g/dL (2.2-4.2); Protein, Total 7.6 g/dL (6.4-8.2)
== END | disposition home or self-care (01) ==
LOC: MFPLAB 15:29
PROVIDERS: PCP Family Medicine; Visit Provider Family Medicine
DX: R79.89 Other specified abnormal findings of blood chemistry (principal)
CPT/HCPCS: 36415; 80076

== ENCOUNTER → 2023-04-24 | Outpatient (CLI) | payer OTHER, SELFPAY ==
--- NOTE | 2023-04-24 10:16 | US_ITS ---
STUDY: ABDOMINAL ULTRASOUND - RIGHT UPPER QUADRANT REASON FOR VISIT: Female, 47 years old evaluate liver TECHNIQUE: Ultrasound evaluation of the right upper quadrant was performed with real-time and static guerrier-scale imaging. TECHNICAL QUALITY: Adequate. COMPARISON: None. FINDINGS: Liver: The liver measures 17.3 cm. There is increased echogenicity consistent with fatty infiltration. The bile ducts are within normal limits. There is hepatic color flow. The direction of portal flow is hepatopetal. There is no demonstrated mass lesion. Gallbladder: Normal distended gallbladder. The gallbladder wall measures 1.1 mm. There is a negative sonographic Diaz''s sign. There is no pericholecystic fluid. There are no gallstones. Common Bile Duct (C.B.D.): The common bile duct measures 3.3 mm. Pancreas: Normal size of the head, body and tail of the pancreas. There is normal echogenicity of the pancreas. There is no demonstrated pancreatic mass or cyst. Right Kidney: Normal size of the right kidney. The right kidney measures 12.6 cm x 4.5 cm x 4.9 cm. Normal renal cortex. The right cortex measures 1.2 cm. There is no demonstrated renal mass or cyst. There is no right hydronephrosis. US/Abdomen Limited IMPRESSION: Borderline hepatomegaly. Fatty infiltration of the liver. Electronically Signed: Rodger Murphy MD at 13:25 EST ,
== END | disposition home or self-care (01) ==
PROVIDERS: PCP Family Medicine; Referring Provider Family Medicine; Visit Provider Family Medicine
DX: R79.89 Other specified abnormal findings of blood chemistry (principal)
CPT/HCPCS: 76705

== ENCOUNTER → 2023-05-28 | Outpatient (CLI) | payer OTHER, SELFPAY ==
[2023-05-28 18:03] LABS: Vitamin D,25 Hydroxy 46.7 ng/mL
[2023-05-28 18:07] LABS: AST(SGOT) 32 U/L (15-37); Alanine Aminotransfer ALT/SGPT 54 U/L (13-56); Albumin, Serum 4.2 g/dL (3.2-5.0); Alkaline Phosphatase 83 U/L (45-117); Bilirubin, Direct 0.11 mg/dL (0.00-0.30); CRP < 2.90 mg/L (0.0-3.0); GGTP 12 U/L (5-55); Globulin 3.1 g/dL (2.2-4.2); Protein, Total 7.3 g/dL (6.4-8.2)
[2023-05-30 15:08] LABS: Endomysial Antibody IgA Negative (Negative); Immunoglobulin A 133 mg/dL (87-352); t-Transglutaminase IgA <2 U/mL (0-3)
== END | disposition home or self-care (01) ==
PROVIDERS: PCP Family Medicine; Referring Provider Internal Medicine Gastroenterology; Visit Provider Internal Medicine Gastroenterology
DX: K90.0 Celiac disease (principal)
CPT/HCPCS: 36415; 80076; 82306; 82784; 82977; 83516; 86140; 86255

== ENCOUNTER → 2023-06-11 | Outpatient (CLI) | payer OTHER, SELFPAY ==
--- NOTE | 2023-06-11 09:29 | US_ITS ---
STUDY: ABDOMINAL ULTRASOUND - ELASTOGRAPHY REASON FOR VISIT: Female, 47 years old. Fatty infiltration of the liver. TECHNIQUE: Liver stiffness measurements were obtained on a [employer] RS 85 ultrasound machine using a CA 1-7 probe following the U guidelines. 3 measurements were obtained using a 2-D-SWE method. TheIQR/M was 18% suggesting a quality data set. TECHNICAL QUALITY: Adequate. COMPARISON: Comparison is made with prior sonogram of the right upper quadrant dated April 24, 2023. FINDINGS: Liver: There is no demonstrated mass lesion. Median liver stiffness measured 8.9 kPa. Abdomen: There is no demonstrated mass lesion. US/Elastography Parenchyma/Organ IMPRESSION: Liver stiffness measures 8.9 kPa compatible with F2-F3 (Mild to moderate liver fibrosis) Metavir score. Electronically Signed: Rodger Murphy MD at 10:50 EDT ,
== END | disposition home or self-care (01) ==
PROVIDERS: PCP Family Medicine; Referring Provider Internal Medicine Gastroenterology; Visit Provider Internal Medicine Gastroenterology
DX: K76.0 Fatty (change of) liver, not elsewhere classified (principal); K90.0 Celiac disease
CPT/HCPCS: 76981

== ENCOUNTER 2023-06-19 09:22 | Outpatient (CLI) | payer OTHER, SELFPAY ==
--- NOTE | 2023-06-19 09:28 | BD_ITS ---
STUDY: DUAL ENERGY X-RAY ABSORPTIOMETRY / DXA REASON FOR EXAM: Female, 47 years old. K90.0 TECHNIQUE: Bone Mineral Density (BMD) measurements of lumbar spine and bilateral hips were obtained. COMPARISON: Comparison is made with prior study dated October 19, 2015. FINDINGS: Lumbar Spine (L1-L4): g/cm2 (0.832) / T-score (-2.0) / Z-score (-1.4) Findings are suggestive of osteopenia with a moderate fracture risk. Left Femur Total: g/cm2 (0.804) / T-score (-1.1) / Z-score (-0.8) Left Femoral Neck: g/cm2 (0.621) / T-score (-2.1) / Z-score (-1.5) Right Femur Total: g/cm2 (0.875) / T-score (-0.5) / Z-score (-0.2) Right Femoral Neck: g/cm2 (0.652) / T-score (-1.8) / Z-score (-1.2) The T-Scores on the most recent prior examination were: Lumbar Spine (L1-L4): There has been worsening of bone density since the previous examination. Left Femur Total: which represents a worsening of 5.7%. Right Femur Total: which represents a worsening of 0.2%. BD/Dexa Bone Density Study IMPRESSION: The patient is considered osteopenic as outlined below according to World Arnold Organization (WHO) criteria with a moderate fracture risk. There has been worsening of bone density since the previous examination. Reference Information: The T-score is the number of standard deviations above or below the standard which is normal for young adults at their peak bone mineral density. The World Health Organization (WHO) interprets the T-scores as follows: Above -1 Normal bone density Between -1 and -2.5 Osteopenia Equal to / or below -2.5 Osteoporosis As a practical clinical guideline, osteopenia may be graded as follows: Mild -1 through -1.5 Moderate -1.6 through -2.0 Severe -2.1 through -2.4 The Z-score is the number of standard deviations above or below age-matched controls. A Z-score of less than -1.5 would be considered abnormal. References: 1. NIH Osteoporosis and Related Bone Diseases www osteo.org 2. International Society for Clinical Densitometry www iscd.org 3. National Osteoporosis Foundation www nof.org Electronically Signed: Rodger Murphy MD at 15:00 EDT ,
== END 2023-06-19 23:59 | disposition home or self-care (01) ==
LOC: OPBD 09:23
PROVIDERS: PCP Family Medicine; Referring Provider Internal Medicine Gastroenterology; Visit Provider Internal Medicine Gastroenterology
DX: K76.0 Fatty (change of) liver, not elsewhere classified (principal); K90.0 Celiac disease
CPT/HCPCS: 77080

== ENCOUNTER 2023-07-30 08:30 | Outpatient (RCR) | payer OTHER, SELFPAY ==
--- NOTE | 2023-07-04 09:17 | HP.PTEVAL_ITS ---
Patient's Visit Information Visit Information Visit Information: JASPREET BLAND is a 47 year old F referred to Physical Therapy by ELKIN OCAMPO with a diagnosis of Hallux valgus S/P 02-22-23. Date of Evaluation: 07/04/23 Physical Therapist: DYLAN Gonzalez Visit Plan Frequency: 2x /Week Duration: 6 Weeks Plan: 2x/ week for 2 weeks and the 1X/ for 3 weeks for L great toe PROM/AROM, MT to the L great toe to gain ROM, gait training, L ankle AROM/strengthening, balance and proprioception with HEP HEP: great toe self flexion stretch, toe towel curls, Standing heel and toe raises, and towel gastroc stretches. Subjective Subjective: Pt had bunion surgery and double osteootomy and she was NWB for 6 weeks and the for 6 weeks she was in boot and crutches. She can not bend it or control it. She can not do it on her own but she can bend it with her finger. Her surgeon reports that her body might have forgot to control her foot anymore. It feels weird to her to bend it. It feels that there is enough room to bend it. She can only wear certain shoes. The swelling is better. Her foot is sore at the distal end of first metatarsal on the L. Stairs: going up is fine but going down is hard cause it does not bend. squatting to the ground is hard and so is fast pace walking is hard. She has been bending and holding her great toe. Pain L great toe: Pain Intensity (Out of 10): 2 Objective Objective: Gait: Walks with decrease heel to toe pattern on the L and more of a steppage gait on the L at the knee. L Ankle AROM: DF 2, PF 45, INV 35, EV 10 R Ankle AROM: DF 10, PF 60, INV 47, EV 14 MMT R Ankle DF 13.2 and L 9.1 R Ankle PF 15.2 and L 9.7 R INV 6.1 and L 5.8 R EV 9.2 and 6.8 Great toe flexion 10 and Great toe ext 7 degrees and 40 and 30 Tight B gastroc Balance/Special Test Scores Lower Extremity Functional Score: 59 Goals Goal 1:: I HEP Goal Time Frame: 6-8 Weeks Goal 2:: Increase L great toe AROM (at the time of the eval: Great toe flexion 10 and Great toe ext 7 degrees and 40 and 30). Goal Time Frame: 6-8 Weeks Goal 3:: Increase L ankle AROM (At the time of the eval: L Ankle AROM: DF 2, PF 45, INV 35, EV 10 R Ankle AROM: DF 10, PF 60, INV 47, EV 14) Goal Time Frame: 6-8 Weeks Goal 4:: Walk with more normal gait pattern with heel to toe gait pattern B Goal Time Frame: 6-8 Weeks Rehabilitation Potential Rehabilitation Potential: Good Anticipated Interventions Patient/Client Instruction: Educate patient on: Condition and Plan of Care For the Purpose of:: To decrease pain, To decrease swelling/inflammation, To increase ROM, To improve nutrient delivery to tissue, To improve muscle performa nce and motor function, To improve ability to perform ADL's, To increase tolerance to activity/condition/position, To improve performance and independence with ADL's, To decrease level of supervision to perform tasks, To improve ability of physical actions for home/community/work/leisure, To improve gait and locomotor functions, To improve health of tissue, To decrease soft tissue restriction, To increase flexibility/ROM and To improve balance Therapeutic Exercise to Include: Strength training, Endurance training, Balance training, Flexibilty training, Gait and locomotor training, Neuromotor development, Passive ROM and Active ROM For the Purpose of:: To decrease pain, To decrease swelling/inflammation, To increase ROM, To improve nutrient delivery to tissue, To improve muscle performance and motor function, To improve ability to perform ADL's, To increase tolerance to activity/condition/position, To improve performance and independence with ADL's, To improve gait and locomotor functions, To improve health of tissue, To decrease soft tissue restriction, To increase flexibility/ROM and To improve safety with gait Functional Training to Include: Gait training For the Purpose of:: To improve gait and locomotor functions Manual Therapy Techniques to Include: Passive ROM and Soft tissue mobilization For the Purpose of:: To decrease pain, To increase ROM, To improve nutrient delivery to tissue, To improve muscle performance and motor function, To improve health of tissue, To decrease soft tissue restriction and To increase flexibility/ROM Text: Thank you for the opportunity to evaluate your patient. For Medicare and Medicare HMO plans, please review the plan of care and approve it. It will need to be FAXED BACK to us at [phone] for Medicare purposes. For Medicare only, by signing this I certify the plan of care. Please let me know if there are questions or concerns regarding this plan of care. Physician Signature: Date:
--- NOTE | 2023-07-30 10:54 | HP.PTDCSUM ---
Discharge Summary D/C summary: It has been my pleasure to treat JASPREET BLAND referred by ELKIN OCAMPO, with the diagnosis of Hallux valgus S/P 02-22-23 for a total of 7 visit(s). Discharge Date: 07/30/23 Please see the following information for a summary of their discharge status. Subjective Subjective: Pt reports that her second joint on her L big toe bends a lot more but the distal joint still mcgee s not move. She is still doing her HEP and will go back to her surgeon Pain L great toe: Pain Intensity (Out of 10): 2 Overall Improvement % Improvement: 25 Objective Objective/Function: L Ankle AROM: DF 10, PF 45, INV 35, EV 10 great toe flex 20 (proximal joint only) and ext 8 (not active more of a rebound) Goals Goal 1:: I HEP Goal Progress: Goal Met Goal 2:: Increase L great toe AROM (at the time of the eval: Great toe flexion 10 and Great toe ext 7 degrees and 40 and 30). Goal Progress: Not Progressing Goal 3:: Increase L ankle AROM (At the time of the eval: L Ankle AROM: DF 2, PF 45, INV 35, EV 10 R Ankle AROM: DF 10, PF 60, INV 47, EV 14) Goal Progress: Goal Met Goal 4:: Walk with more normal gait pattern with heel to toe gait pattern B Goal Progress: Goal Met Plan Plan: DC PT to Hep D/C Information Discharge Comments: DC PT to HEP d/c sentence: If there are questions or concerns regarding this patient's physical therapy, please feel free to call me at [phone]. Thank you for the referral of this patient. Sincerely, Olimpia Dubon, MPT Balance/Gait/Functional tests Balance/Special Test Scores Lower Extremity Functional Score: 55 Improvement % Improvement: 25
== END 2023-07-30 19:00 | disposition home or self-care (01) ==
LOC: PT 08:30
PROVIDERS: PCP Family Medicine
DX: M20.12 Hallux valgus (acquired), left foot (principal)
CPT/HCPCS: 97110; 97140; 97161; 97530

== ENCOUNTER → 2024-04-18 | Outpatient (CLI) | payer OTHER, SELFPAY ==
[2024-04-18 16:01] LABS: AST(SGOT) 19 U/L (15-37); Alanine Aminotransfer ALT/SGPT 30 U/L (13-56); Albumin, Serum 4.3 g/dL (3.2-5.0); Alkaline Phosphatase 72 U/L (45-117); Bilirubin, Direct 0.13 mg/dL (0.00-0.30); Globulin 3.6 g/dL (2.2-4.2); Protein, Total 7.9 g/dL (6.4-8.2)
[2024-04-20 06:37] LABS: GGTP 18 IU/L (0-60)
== END | disposition home or self-care (01) ==
LOC: MTLAB 13:43
PROVIDERS: PCP Family Medicine; Referring Provider Internal Medicine Gastroenterology; Visit Provider Internal Medicine Gastroenterology
DX: K76.0 Fatty (change of) liver, not elsewhere classified (principal)
CPT/HCPCS: 36415; 80076; 82977

== ENCOUNTER 2024-10-14 13:30 | Outpatient (RCR) | payer OTHER, SELFPAY ==
--- NOTE | 2024-09-19 11:54 | HP.PTEVAL_ITS ---
Patient's Visit Information Visit Information Visit Information: JASPREET BLAND is a 48 year old F referred to Physical Therapy by TIARRA WORLEY with a diagnosis of L Calcific tendonitis. Date of Evaluation: 09/19/24 Physical Therapist: DYLAN Gonzalez Visit Plan Frequency: 2x /Week Duration: 2 Months Plan: 2X/ week for 8 weeks for end range PROM, AAROM to AROM, RC strength, scapular strength with HEP HEP: supine wand flexion, Standing wand ABD, Standing wand IR Subjective Subjective: 2 years now has pain of the L shoulder and throb and taking her shirt off was painful. Mentioned to new PCP and X-ray and PT and did not like them. Saw Ortho and had a TENJET procedure. No lifting for another week greater than 5#. She had the TENJET procedure to break it up. She does not feel any better and actually worse the last few days. She reports that she has achiness almost all the time this past week. It hurts in the evening when she l ays back. It is painful when she drives. They did do an MRI. She has not done any exercises at home. She is R handed. Rolling over in bed hurts as well. Pain L shoulder pain: Pain Intensity (Out of 10): 3 Objective Objective: R handed UE AROM: R shoulder flexion 170 and L 160 R shoulder ABD 180 and L 165 R shoulder IR T8 R shoulder ER 53 AND L 53 Shoulder MMT: R shoulder flex 10.6 and L 6.9 R shoulder ABD 10.4 and L 7 R shoulder ER 10.3 and L 7.8 R shoulder IR 7.6 and L 7.6 PROM: tight with pain at end ranges L shoulder Posture: good Balance/Special Test Scores Quick DASH Score: 36.3625 Goals Goal 1:: I HEP Goal Time Frame: 6-8 Weeks Goal 2:: Increase L shoulder AROM to full end range pain free Goal Time Frame: 6-8 Weeks Goal 3:: Increase L shoulder strength (at the time of the eval: Shoulder MMT: R shoulder flex 10.6 and L 6.9 R shoulder ABD 10.4 and L 7 R shoulder ER 10.3 and L 7.8 R shoulder IR 7.6 and L 7.6) Goal Time Frame: 6-8 Weeks Goal 4:: Be able to use L arm functionally without pain Goal Time Frame: 6-8 Weeks Rehabilitation Potential Rehabilitation Potential: Good Anticipated Interventions Patient/Client Instruction: Educate patient on: Condition and Plan of Care For the Purpose of:: To decrease pain, To decrease swelling/inflammation, To increase ROM, To improve nutrient delivery to tissue, To improve muscle performance and motor function, To improve ability to perform ADL's, To increase tolerance to activity/condition/position, To improve performance and independence with ADL's, To improve ability of physical actions for home/community/work/leisure, To improve health of tissue, To decrease soft tissue restriction and To increase flexibility/ROM Therapeutic Exercise to Include: Strength training, Postural training, Flexibilty training, Neuromotor development, Passive ROM, Active ROM and Scapular Strength/Stabilization For the Purpose of:: To decrease pain, To decrease swelling/inflammation, To increase ROM, To improve nutrient delivery to tissue, To improve muscle performance and motor function, To improve ability to perform ADL's, To increase tolerance to activity/condition/position, To improve performance and independence with ADL's, To improve ability of physical actions for home/community/work/leisure, To improve health of tissue, To decrease soft tissue restriction and To increase flexibility/ROM Manual Therapy Techniques to Include: Passive ROM and Soft tissue mobilization For the Purpose of:: To decrease pain, To decrease swelling/inflammation, To increase ROM, To improve nutrient delivery to tissue, To improve muscle performance and motor function, To improve ability to perform ADL's, To increase tolerance to activity/condition/position, To improve health of tissue, To decrease soft tissue restriction and To increase flexibility/ROM Cryotherapy (ice pack, ice massage): Yes Thermo therapy (hot pack): Yes For the Purpose of:: To decrease pain, To decrease swelling/inflammation, To increase ROM and To improve nutrient delivery to tissue Text: Thank you for the opportunity to evaluate your patient. For Medicare and Medicare HMO plans, please review the plan of care and approve it. It will need to be FAXED BACK to us at [phone] for Medicare purposes. For Medicare only, by signing this I certify the plan of care. Please let me know if there are questions or concerns regarding this plan of care. Physician Signature: Date:
--- NOTE | 2024-10-14 14:13 | HP.PTDCSUM ---
Discharge Summary D/C summary: It has been my pleasure to treat JASPREET BLAND referred by TIARRA WORLEY, with the diagnosis of L Calcific tendonitis for a total of 7 visit(s). Discharge Date: 10/14/24 Please see the following information for a summary of their discharge status. Subjective Subjective: said usually 4 month situation. Somedays are better than others. Hurts more when she sleeps. She did a follow up x-ray. Dr said good portion of calcium is not gone but improved. Pain L shoulder pain: Pain Intensity (Out of 10): 3 Overall Improvement % Improvement: 10 Objective Objective/Function: UE MMT: R shoulder flex 10.6 and L 6.9 R shoulder ABD 10.4 and L 8.1 R shoulder ER 10.3 and L 8.6 R shoulder IR 7.6 and L 8.6 Pt has pain at end ranges. Pt has HEP Pt has pain anterior shoulder under acromion and pain with horizontal adduction....encouraged pt to continue to stretch posterior capsule Goals Goal 1:: I HEP Goal Progress: Goal Met Goal 2:: Increase L shoulder AROM to full end range pain free Goal Progress: Progressing Goal 3:: Increase L shoulder strength (at the time of the eval: Shoulder MMT: R shoulder flex 10.6 and L 6.9 R shoulder ABD 10.4 and L 7 R shoulder ER 10.3 and L 7.8 R shoulder IR 7.6 and L 7.6) Goal Progress: Progressing Goal 4:: Be able to use L arm functionally without pain Goal Progress: Goal Met Plan Plan: DC PT to HEP. Pt will continue to work on her ROM and strength at home as her Dr said her healing time will be over a 4 month period D/C Information Discharge Comments: DC PT to HEP d/c sentence: If there are questions or concerns regarding this patient's physical therapy, please feel free to call me at [phone]. Thank you for the referral of this patient. Sincerely, Olimpia Dubon, MPT Balance/Gait/Functional tests Balance/Special Test Scores Quick DASH Score: 36.3625 Improvement % Improvement: 10
== END 2024-10-14 19:00 | disposition home or self-care (01) ==
LOC: PT 13:30
PROVIDERS: PCP Family Medicine
DX: M75.32 Calcific tendinitis of left shoulder (principal)
CPT/HCPCS: 97110; 97161; 97530

== ENCOUNTER → 2025-01-19 | Outpatient (CLI) | payer OTHER, SELFPAY ==
--- NOTE | 2025-01-19 07:54 | US_ITS ---
PROCEDURE: ABD LIMITED W/ ELASTOGRAPHY REASON FOR EXAM: FATTY LIVER COMPARISON: April 24, 2023. TECHNIQUE: Procedure Code: [id number] Modality: US Procedure: ABD LIMITED W/ ELASTOGRAPHY Right upper quadrant abdominal ultrasound. Iza ElastQ Imaging shear wave elastography for non-invasive assessment of liver tissue stiffness. Iza EPIQ Elite. FINDINGS: LIVER: Size: Unremarkable Length: 15.7 cm Echotexture: Diffusely echogenic suggesting fatty infiltration Contour: Normal Lesions: None identified Elastography: EQI Med: 4.0 kPa EQI Med Jaya: 1.15 m/s IQR/Med: 9.4 %* GALLBLADDER: No stones sludge wall thickening or tenderness. COMMON BILE DUCT: Normal measuring 3 mm . PANCREAS: Normal Visualized portions of the right kidney are unremarkable. No right upper quadrant ascites. US/ABD Limited w/ Elastography IMPRESSION: No hepatic fibrosis. Fatty infiltration of the liver. Reference Values: SRU <1.37 m/s (5.7kPa): No to mild fibrosis 1.37 m/s - 2.2 m/s: Moderate to severe fibrosis >2.2 m/s (15kPa): Significant fibrosis / cirrhosis METAVIR Score F2 or higher: 1.34 m/s (5.7kPa) F3 or higher: 1.55 m/s (7.3kPa) F4: 1.80 m/s (10kPa) * If the IQR/Med is >30%, the variance in the measurements is a large and the a ccuracy of the measurement may be in question. Reading Location: [place] [id number]
== END | disposition home or self-care (01) ==
LOC: US 07:51
PROVIDERS: PCP Nurse Practitioner Family; Referring Provider Internal Medicine Gastroenterology; Visit Provider Internal Medicine Gastroenterology
DX: K76.0 Fatty (change of) liver, not elsewhere classified (principal); K90.0 Celiac disease
CPT/HCPCS: 76705; 76981